=== PATIENT | male | born 1990 | race American Indian/Alaskan Native ===

== ENCOUNTER 2019-10-16 09:54 | Inpatient (IN) | payer OTHER ==
--- NOTE | 2019-10-16 10:35 | Emergency Department Report ---
HPI - General Chief Complaint: Sickle Cell Crisis Time Seen by Provider: 10/16/19 10:18 - HPI HPI: 29-year-old -[place]oc[place] male presents to the emergency department with complaint of a 2-day history of shortness of breath. He has a history of sickle cell anemia. He denies any fever, chest pain, cough, back pain, lower extremity swelling. He has not taken, nor received anything, for his symptoms prior to presentation. The patient was found to be 87% on room air through triage. ED Past Medical Hx - Past Medical History Previous Medical History?: Yes Hx Sickle Cell Disease: Yes - Surgical History Past Surgical History?: No - Social History Smoking Status: Never Smoker ED Review of Systems ROS: Stated complaint: SSC/SOB Other details as noted in HPI Comment: All other systems reviewed and negative Constitutional: denies: chills, fever Eyes: denies: eye pain, vision change ENT: denies: ear pain, throat pain Respiratory: shortness of breath. denies: cough Cardiovascular: denies: chest pain, palpitations Gastrointestinal: denies: abdominal pain, vomiting Genitourinary: denies: dysuria, discharge Musculoskeletal: denies: back pain, arthralgia Skin: denies: rash, lesions Neurological: denies: headache, weakness Physical Exam - Physical Exam Vital Signs: Vital Signs 10/16/19 10/16/19 10:13 10:26 Temperature 97.9 F Pulse Rate 59 L 73 Respiratory 20 14 Rate Blood Pressure 120/62 O2 Sat by Pulse 88 Oximetry Physical Exam: GENERAL: The patient is well-developed well-nourished. HENT: Normocephalic. Atraumatic. Patient has moist mucous membranes. EYES: Extraocular motions are intact. Pupils equal reactive to light bilat erally. Pale conjunctiva. NECK: Supple. Trachea is midline. CHEST/LUNGS: Clear to auscultation. Mild tachypnea but no accessory muscle use. HEART/CARDIOVASCULAR: Regular. There is no tachycardia. There is no murmur. ABDOMEN: Abdomen is soft, nontender. Patient has normal bowel sounds. SKIN: Skin is warm and dry. Patient is slightly jaundiced. NEURO: The patient is awake, alert, and oriented. The patient is cooperative. The patient has no focal neurologic deficits. Normal speech. MUSCULOSKELETAL: There is no tenderness or deformity.There is no evidence of acute injury. ED Course Vital Signs 10/16/19 10/16/19 10:13 10:26 Temperature 97.9 F Pulse Rate 59 L 73 Respiratory 20 14 Rate Blood Pressure 120/62 O2 Sat by Pulse 88 Oximetry ED Medical Decision Making - Lab Data Result diagrams: 10/16/19 10:33 10/16/19 10:33 - EKG Data -: EKG Interpreted by Me EKG shows normal: sinus rhythm, axis, intervals (Prolonged WI interval), QRS complexes, ST-T waves (T wave inversion to lead III) Rate: bradycardia (55 bpm) - EKG Data When compared to previous EKG there are: previous EKG unavailable Interpretation: other (Sinus bradycardia at 55 bpm, prolonged WI interval, T wave inversion to lead III) - Radiology Data Radiology results: image reviewed interpreted by me: Chest x-ray does not show any acute process. There are no pleural effusions, obvious pneumonia and there is no pneumothorax. - Medical Decision Making This patient presents from group home with complaint of a 2-day history of shortness of breath. Patient is afebrile but does present with some hypoxia. The patient was as low as 88% on room air in triage. He was placed on oxygen via nasal cannula but he was once again tested when he came back to the main emergency department and he went down to 90%. He now remains on supplemental oxygen. Chest x-ray does not show any pneumonia, pleural effusions, or any other acute process. Patient has a hemoglobin of 6.7. He has a reticulocyte count of greater than 9. The rest of the labs are unremarkable except for elevated total bilirubin and elevated LDH. The patient has had 1 unit of packed red blood cells ordered for transfusion. He will be admitted to the hospital for further evaluation and treatment and was accepted for admission by the hospitalist service. Critical Care Time: Yes Critical care time in (mins) excluding proc time.: 31 Critical care attestation.: If time is entered above; I have spent that time in minutes in the direct care of this critically ill patient, excluding procedure time. Critical care time was spent on this patient in doing his initial evaluation, multiple re-evalua tions, ordering and interpretation of labs and imaging, ordering of blood for transfusion, multiple discussions with the patient. Critical Care Time: 31 minutes ED Disposition Clinical Impression: Sickle cell crisis, Anemia requiring transfusions, Symptomatic anemia, Hypoxia Disposition: - OP ADMIT IP TO THIS HOSP Is pt being admited?: Yes Condition: Serious Time of Disposition: 11:42
[2019-10-16 10:57] LABS: Hemoglobin 6.7 gm/dl (11.8-15.2); Mean Corpuscular HGB Conc 37 % (32-34); Mean Corpuscular Volume 82 fl (84-94); Platelet Count 410 K/mm3 (140-440); Red Blood Count 2.23 M/mm3 (3.65-5.03)
--- NOTE | 2019-10-16 10:59 | XRay Report ---
CHEST 1 VIEW 10/16/2019 10:34 AM INDICATION / CLINICAL INFORMATION: SOB. COMPARISON: None available. FINDINGS: SUPPORT DEVICES: None. HEART / MEDIASTINUM: No significant abnormality. LUNGS / PLEURA: There is mild left basilar atelectasis/scarring. The lungs are otherwise clear. No si gnificant pleural effusion. No pneumothorax. ADDITIONAL FINDINGS: No significant additional findings. IMPRESSION: 1. No acute abnormality of the chest. Signer Name: Maurice Lehman MD Signed: 10/16/2019 10:54 AM Workstation Name: [id number]
[2019-10-16 11:08] LABS: Hematocrit 18.2 % (35.5-45.6); INR 1.18 (0.87-1.13); Red Cell Distribution Width 27.7 % (13.2-15.2)
[2019-10-16 11:09] LABS: Partial Thromboplastin Time 28.1 Sec. (24.2-36.6)
[2019-10-16 11:35] LABS: Alanine Aminotransferase 45 units/L (7-56); Albumin 4.4 g/dL (3.9-5); BUN/Creatinine Ratio 16; Blood Urea Nitrogen 11 mg/dL (9-20); Calcium 9.2 mg/dL (8.4-10.2); Hemolysis Index 35
[2019-10-16 11:36] LABS: C-Reactive Protein 0.8 mg/dL (0.00-1.30)
[2019-10-16] MEDS ORDERED: SODIUM CHLORIDE 0.9% 500 ML 500 ML IV ONE (11:36)
[2019-10-16 13:10] LABS: Anisocytosis 3+; Basophils % (Manual) 0 % (0.0-1.8); Sickle Cells 3+; Target Cells 1+; Total Cells Counted 100
[2019-10-16 13:11] LABS: Giant Platelets Rare; Platelet Estimate Consistent w Auto
--- NOTE | 2019-10-16 16:26 | History and Physical Report ---
History of Present Illness Date of examination: 10/16/19 Date of admission: 10/16/19 11:42 Chief complaint: Generalized body pains/sickle cell crisis History of present illness: Very pleasant 29-year-old -Cypriot male patient, incarcerated was brought by the law enforcement officers with worsening shortness of breath and generalized body pains, patient was admitted through emergency room, noted to be hypoxemic, with O2 sats of 87% room air and initial work-up is consistent with severe anemia with hemoglobin of 6, patient's O2 sats improved on nasal cannula oxygen Patient is noted to have symptomatic anemia, mild nausea no vomiting Patient denies chest pain, however complains of generalized body pains and shortness of breath Chest x-ray; no acute abnormality Past History Past Medical History: other (Sickle cell disease) Past Surgical History: No surgical history Social history: other (Incarcerated). denies: smoking, alcohol abuse, prescription drug abuse Family history: no significant family history Medications and Allergies Allergies Allergy/AdvReac Type Severity Reaction Status Date / Time No Known Allergies Allergy Unverified 10/16/19 10:15 Review of Systems Constitutional: weakness, no weight loss, no weight gain, no anorexia Ears, nose, mouth and throat: no nasal congestion, no nasal discharge Cardiovascular: shortness of breath, other (Generalized body pains) Respiratory: shortness of breath, no cough, no hemoptysis Gastrointestinal: no abdominal pain, no nausea, no vomiting Genitourinary Male: no dysuria, no hematuria Musculoskeletal: myalgias, no arthritis Integumentary: no rash, no lesions Neurological: no seizures, no syncope Psychiatric: no anxiety, no depression Endocrine: no polydipsia, no polyuria Hematologic/Lymphatic: no easy bruising, no easy bleeding Allergic/Immunologic: no urticaria, no allergic rhinitis Exam - Constitutional Vitals: Temp Pulse Resp BP Pulse Ox 98.3 F 49 L 17 112/64 99 10/16/19 10:35 10/16/19 11:30 10/16/19 12:30 10/16/19 12:30 10/16/19 12:30 General appearance: Present: mild distress, well-nourished - EENT Eyes: Present: PERRL, EOM intact - Neck Neck: Present: supple, normal ROM - Respiratory Respiratory effort: normal Respiratory: bilateral: diminished, negative: rales, rhonchi, wheezing - Cardiovascular Rhythm: regular Heart Sounds: Present: S1 & S2 - Extremities Extremities: no ischemia, No edema - Abdominal General gastrointestinal: Present: soft, non-tender, non-distended, normal bowel sounds - Integumentary Integumentary: Present: clear, warm - Musculoskeletal Musculoskeletal: strength equal bilaterally, generalized weakness - Psychiatric Psychiatric: appropriate mood/affect, cooperative - Neurologic Neurologic: moves all extremities Results - Labs CBC & Chem 7: 10/16/19 10:33 10/16/19 10:33 Labs: Abnormal lab results 10/16/19 10/16/19 10/16/19 Range/Units 10:33 10:33 10:33 WBC 11.4 H (4.5-11.0) K/mm3 RBC 2.23 L (3.65-5.03) M/mm3 Hgb 6.7 L (11.8-15.2) gm/dl Hct 18.2 L* (35.5-45.6) % MCV 82 L (84-94) fl MCHC 37 H (32-34) % RDW 27.7 H (13.2-15.2) % Eosinophils % (Manual) 8.0 H (0.0-4.3) % Nucleated RBC % 2.0 H (0.0-0.9) % Eosinophils # (Manual) 0.9 H (0.0-0.4) K/mm3 Percent Retic 9.19 H (0.78-2.58) % PT 15.2 H (12.2-14.9) Sec. INR 1.18 H (0.87-1.13) Sodium 136 L (137-145) mmol/L Carbon Dioxide 20 L (22-30) mmol/L Creatinine 0.7 L (0.8-1.5) mg/dL Total Bilirubin 5.30 H (0.1-1.2) mg/dL AST 53 H (5-40) units/L Lactate Dehydrogenase (91-180) units/L Crossmatch 10/16/19 10/16/19 Range/Units 10:33 10:57 WBC (4.5-11.0) K/mm3 RBC (3.65-5.03) M/mm3 Hgb (11.8-15.2) gm/dl Hct (35.5-45.6) % MCV (84-94) fl MCHC (32-34) % RDW (13.2-15.2) % Eosinophils % (Manual) (0.0-4.3) % Nucleated RBC % (0.0-0.9) % Eosinophils # (Manual) (0.0-0.4) K/mm3 Percent Retic (0.78-2.58) % PT (12.2-14.9) Sec. INR (0.87-1.13) Sodium (137-145) mmol/L Carbon Dioxide (22-30) mmol/L Creatinine (0.8-1.5) mg/dL Total Bilirubin (0.1-1.2) mg/dL AST (5-40) units/L Lactate Dehydrogenase 607 H (91-180) units/L Crossmatch See Detail Assessment and Plan --Acute respiratory distress; with brief hypoxemia Resolved with nasal cannula oxygen, continue supportive care --Symptomatic anemia; hemoglobin less than 7 Due to sickle cell anemia, type and cross, transfuse 1 unit of PRBC Closely monitor H&H, additional PRBC transfusion if needed --Sickle cell crisis; oxygen titrate O2 sats to more than 90% IV fluids, pain medications, hematology consult if needed --Leukocytosis; probably stress-induced Closely monitor --Mild elevation of transaminases; Sickle cell related, closely monitor, abdominal ultrasound if no improvement --DVT prophylaxis; SCDs No pharmacologic anticoagulation in view of anemia Closely monitor the patient and adjust management as needed Plan of care reviewed with the patient, his nurse And the security officers at the bedside
[2019-10-16] MEDS ORDERED: NALOXONE 0.4 MG/1 ML INJ IV PRN (16:29)
[2019-10-16] MEDS ORDERED: ONDANSETRON 4 MG/2 ML INJ IV PRN (16:29)
[2019-10-16] MEDS ORDERED: MAGNESIUM HYDROXIDE (MOM) ORAL LIQD UDC PO PRN (16:29)
[2019-10-16] MEDS ORDERED: HYDROmorphone 2 MG/1 ML INJ IV PRN (16:29)
[2019-10-16] MEDS ORDERED: D5W/0.45% NACL 1,000 ML IV SCH (17:00)
[2019-10-16] MEDS ORDERED: oxyCODONE ER 20 MG TAB PO SCH (17:00)
[2019-10-16] MEDS ORDERED: oxyCODONE ER 20 MG TAB PO PRN (17:03)
[2019-10-16] MEDS: SENNOSIDES 8.6 MG TAB PO SCH (22:43)
[2019-10-17] MEDS: diphenhydrAMINE 25 MG CAP PO PRN ×2 (00:03→23:19)
[2019-10-17] MEDS: HYDROcodone/ACETAMINOPHEN 10-325MG TAB PO PRN ×3 (00:03→23:19)
[2019-10-17 04:42] LABS: Hemoglobin 6.8 gm/dl (11.8-15.2); Mean Corpuscular HGB Conc 36 % (32-34); Mean Corpuscular Volume 83 fl (84-94); Platelet Count 344 K/mm3 (140-440); Red Blood Count 2.26 M/mm3 (3.65-5.03)
[2019-10-17 04:57] LABS: BUN/Creatinine Ratio 20; Blood Urea Nitrogen 14 mg/dL (9-20); Calcium 8.7 mg/dL (8.4-10.2); Hemolysis Index 7
[2019-10-17 05:39] LABS: Hematocrit 18.6 % (35.5-45.6); Red Cell Distribution Width 25.3 % (13.2-15.2)
[2019-10-17 07:30] LABS: Anisocytosis 2+; Basophils % (Manual) 0 % (0.0-1.8); Sickle Cells 1+; Total Cells Counted 100
[2019-10-17 07:31] LABS: Platelet Estimate Consistent w Auto; Target Cells 1+
[2019-10-17 09:02] LABS: Basophils # (Auto) 0.1 K/mm3 (0.0-0.1); Eosinophils # (Auto) 1.3 K/mm3 (0.0-0.4); Monocytes # (Auto) 1.4 K/mm3 (0.0-0.8); Monocytes % (Auto) 14.8 % (0.0-7.3)
[2019-10-17 09:22] LABS: Hemoglobin 7.2 gm/dl (11.8-15.2); Red Blood Count 2.34 M/mm3 (3.65-5.03)
[2019-10-17 09:23] LABS: Hematocrit 19.1 % (35.5-45.6); Lymphocytes # (Auto) 1.1 K/mm3 (1.2-5.4); Mean Corpuscular HGB Conc 37 % (32-34); Mean Corpuscular Volume 82 fl (84-94); Platelet Count 381 K/mm3 (140-440); Red Cell Distribution Width 25.7 % (13.2-15.2)
[2019-10-17] MEDS: FOLIC ACID 1 MG TAB PO SCH (09:54)
[2019-10-17] MEDS: MULTIVITAMINS ,THERAPEUTIC TAB PO SCH (09:54)
--- NOTE | 2019-10-17 20:44 | Progress Note ---
Assessment and Plan Assessment and plan: --Acute respiratory distress; with brief hypoxemia Resolved with nasal cannula oxygen, continue supportive care --Symptomatic anemia; hemoglobin less than 7 Improved after blood transfusion Closely monitor H&H, additional PRBC transfusion if needed --Sickle cell crisis; oxygen titrate O2 sats to more than 90% IV fluids, pain medications, hematology consult if needed Reticulocyte count is very high, closely monitor --Leukocytosis; probably stress-induced Closely monitor --Mild elevation of transaminases; Sickle cell related, closely monitor, abdominal ultrasound if no improvement --DVT prophylaxis; SCDs No pharmacologic anticoagulation in view of anemia Closely monitor the patient and adjust management as needed Plan of care reviewed with the patient, his nurse And the security officers at the bedside History Interval history: Patient seen and examined at the bedside this morning No enforcement officers at the bedside Patient feels slightly better complains of generalized weakness and body pains Denies chest pain or shortness of breath Vital signs reviewed Hospitalist Physical - Constitutional Vitals: Temp Pulse Resp BP Pulse Ox 98.0 F 50 L 18 110/65 97 10/17/19 15:56 10/17/19 15:56 10/17/19 15:56 10/17/19 15:56 10/17/19 15:56 General appearance: Present: mild distress, well-nourished Results - Labs CBC & Chem 7: 10/19/19 05:14 10/17/19 03:55 Labs: Laboratory Last Values WBC 9.8 K/mm3 (4.5-11.0) 10/17/19 08:22 RBC 2.34 M/mm3 (3.65-5.03) L 10/17/19 08:22 Hgb 7.2 gm/dl (11.8-15.2) L 10/17/19 08:22 Hct 19.1 % (35.5-45.6) L* 10/17/19 08:22 MCV 82 fl (84-94) L 10/17/19 08:22 MCH 31 pg (28-32) 10/17/19 08:22 MCHC 37 % (32-34) H 10/17/19 08:22 RDW 25.7 % (13.2-15.2) H 10/17/19 08:22 Plt Count 381 K/mm3 (140-440) 10/17/19 08:22 Lymph % (Auto) 11.0 % (13.4-35.0) L 10/17/19 08:22 [place] % (Auto) 14.8 % (0.0-7.3) H 10/17/19 08:22 Eos % (Auto) 13.0 % (0.0-4.3) H 10/17/19 08:22 Baso % (Auto) 1.0 % (0.0-1.8) 10/17/19 08:22 Lymph # 1.1 K/mm3 (1.2-5.4) L 10/17/19 08:22 [place] # 1.4 K/mm3 (0.0-0.8) H 10/17/19 08:22 Eos # 1.3 K/mm3 (0.0-0.4) H 10/17/19 08:22 Baso # 0.1 K/mm3 (0.0-0.1) 10/17/19 08:22 Add Manual Diff Complete 10/17/19 03:55 Total Counted 100 10/17/19 03:55 Seg Neutrophils % 60.2 % (40.0-70.0) 10/17/19 08:22 Seg Neuts % (Manual) 45.0 % (40.0-70.0) 10/17/19 03:55 Band Neutrophils % 0 % 10/17/19 03:55 Lymphocytes % (Manual) 40.0 % (13.4-35.0) H 10/17/19 03:55 Reactive Lymphs % (Man) 1.0 % 10/17/19 03:55 Monocytes % (Manual) 5.0 % (0.0-7.3) 10/17/19 03:55 Eosinophils % (Manual) 9.0 % (0.0-4.3) H 10/17/19 03:55 Basophils % (Manual) 0 % (0.0-1.8) 10/17/19 03:55 Metamyelocytes % 0 % 10/17/19 03:55 Myelocytes % 0 % 10/17/19 03:55 Promyelocytes % 0 % 10/17/19 03:55 Blast Cells % 0 % 10/17/19 03:55 Nucleated RBC % 1.0 % (0.0-0.9) H 10/17/19 03:55 Seg Neutrophils # 5.9 K/mm3 (1.8-7.7) 10/17/19 08:22 Seg Neutrophils # Man 4.9 K/mm3 (1.8-7.7) 10/17/19 03:55 Band Neutrophils # 0.0 K/mm3 10/17/19 03:55 Lymphocytes # (Manual) 4.3 K/mm3 (1.2-5.4) 10/17/19 03:55 Abs React Lymphs (Man) 0.1 K/mm3 10/17/19 03:55 Monocytes # (Manual) 0.5 K/mm3 (0.0-0.8) 10/17/19 03:55 Eosinophils # (Manual) 1.0 K/mm3 (0.0-0.4) H 10/17/19 03:55 Basophils # (Manual) 0.0 K/mm3 (0.0-0.1) 10/17/19 03:55 Metamyelocytes # 0.0 K/mm3 10/17/19 03:55 Myelocytes # 0.0 K/mm3 10/17/19 03:55 Promyelocytes # 0.0 K/mm3 10/17/19 03:55 Blast Cells # 0.0 K/mm3 10/17/19 03:55 WBC Morphology Not Reportable 10/17/19 03:55 Hypersegmented Neuts Not Reportable 10/17/19 03:55 Hyposegmented Neuts Not Reportable 10/17/19 03:55 Hypogranular Neuts Not Reportable 10/17/19 03:55 Smudge Cells Not Reportable 10/17/19 03:55 Toxic Granulation Not Reportable 10/17/19 03:55 Toxic Vacuolation Not Reportable 10/17/19 03:55 Dohle Bodies Not Reportable 10/17/19 03:55 Pelger-Huet Anomaly Not Reportable 10/17/19 03:55 Arian Rods Not Reportable 10/17/19 03:55 Platelet Estimate Consistent w auto 10/17/19 03:55 Clumped Platelets Not Reportable 10/17/19 03:55 Plt Clumps, EDTA Not Reportable 10/17/19 03:55 Large Platelets Not Reportable 10/17/19 03:55 Giant Platelets Not Reportable 10/17/19 03:55 Platelet Satelliting Not Reportable 10/17/19 03:55 Plt Morphology Comment Not Reportable 10/17/19 03:55 RBC Morphology Not Reportable 10/17/19 03:55 Dimorphic RBCs Not Reportable 10/17/19 03:55 Polychromasia 1+ 10/17/19 03:55 Hypochromasia Not Reportable 10/17/19 03:55 Poikilocytosis Not Reportable 10/17/19 03:55 Anisocytosis 2+ 10/17/19 03:55 Microcytosis Not Reportable 10/17/19 03:55 Macrocytosis Not Reportable 10/17/19 03:55 Spherocytes Not Reportable 10/17/19 03:55 Pappenheimer Bodies Not Reportable 10/17/19 03:55 Sickle Cells 1+ 10/17/19 03:55 Target Cells 1+ 10/17/19 03:55 Tear Drop Cells Not Reportable 10/17/19 03:55 Ovalocytes Not Reportable 10/17/19 03:55 Helmet Cells Not Reportable 10/17/19 03:55 [place] Bodies Not Reportable 10/17/19 03:55 [place] Rings Not Reportable 10/17/19 03:55 Depue Cells Not Reportable 10/17/19 03:55 Bite Cells Not Reportable 10/17/19 03:55 Crenated Cell Not Reportable 10/17/19 03:55 Elliptocytes 1+ 10/17/19 03:55 Acanthocytes (Spur) Not Reportable 10/17/19 03:55 Rouleaux Not Reportable 10/17/19 03:55 Hemoglobin C Crystals Not Reportable 10/17/19 03:55 Schistocytes Not Reportable 10/17/19 03:55 Malaria parasites Not Reportable 10/17/19 03:55 Percent Retic 9.19 % (0.78-2.58) H 10/16/19 10:33 Heraclio Bodies Not Reportable 10/17/19 03:55 Hem Pathologist Commnt No 10/17/19 03:55 PT 15.2 Sec. (12.2-14.9) H 10/16/19 10:33 INR 1.18 (0.87-1.13) H 10/16/19 10:33 APTT 28.1 Sec. (24.2-36.6) 10/16/19 10:33 Sodium 137 mmol/L (137-145) 10/17/19 03:55 Potassium 4.0 mmol/L (3.6-5.0) 10/17/19 03:55 Chloride 105.2 mmol/L (98-107) 10/17/19 03:55 Carbon Dioxide 23 mmol/L (22-30) 10/17/19 03:55 Anion Gap 13 mmol/L 10/17/19 03:55 BUN 14 mg/dL (9-20) 10/17/19 03:55 Creatinine 0.7 mg/dL (0.8-1.5) L 10/17/19 03:55 Estimated GFR > 60 ml/min 10/17/19 03:55 BUN/Creatinine Ratio 20 % 10/17/19 03:55 Glucose 102 mg/dL (75-100) H 10/17/19 03:55 Calcium 8.7 mg/dL (8.4-10.2) 10/17/19 03:55 Ferritin 89.3 ng/mL (13.0-400.0) 10/16/19 10:33 Total Bilirubin 5.30 mg/dL (0.1-1.2) H 10/16/19 10:33 AST 53 units/L (5-40) H 10/16/19 10:33 ALT 45 units/L (7-56) 10/16/19 10:33 Alkaline Phosphatase 111 units/L (35-129) 10/16/19 10:33 Lactate Dehydrogenase 607 units/L (91-180) H 10/16/19 10:33 C-Reactive Protein 0.80 mg/dL (0.00-1.30) 10/16/19 10:33 NT-Pro-B Natriuret Pep 70.60 pg/mL (0-450) 10/16/19 10:33 Total Protein 8.0 g/dL (6.3-8.2) 10/16/19 10:33 Albumin 4.4 g/dL (3.9-5) 10/16/19 10:33 Albumin/Globulin Ratio 1.2 % 10/16/19 10:33 Procalcitonin 0.36 ng/mL (<0.15) 10/16/19 10:33 Blood Type O POSITIVE 10/16/19 10:57 Antibody Screen Positive 10/16/19 10:57 Antibody Identification Anti-C Anti-E 10/16/19 10:57 Antibody Identification Anti-C Anti-E 10/16/19 10:57 Crossmatch See Detail 10/16/19 10:57 Chun/IV: Voiding Method Toilet IV Catheter Type [Right Hand] INT / Saline Lock Active Medications - Current Medications Current Medications: Generic Name Dose Route Start Last Admin Trade Name Freq PRN Reason Stop Dose Admin Acetaminophen/Hydrocodone Bitart 1 each 10/16/19 16:29 10/17/19 09:54 [place] 10/325 PO 1 each Q4H PRN Administration Pain, Moderate (4-6) Bisacodyl 10 mg 10/16/19 16:29 Dulcolax [place] QDAY PRN Constipation unrelieved by MOM Diphenhydramine HCl 25 mg 10/16/19 16:29 10/17/19 00:03 Benadryl PO 25 mg Q6H PRN Administration Itching Folic Acid 1 mg 10/17/19 10:00 10/17/19 09:54 Folvite PO 1 mg QDAY TYLER Administration Magnesium Hydroxide 30 ml 10/16/19 16:29 Milk Of Magnesia PO Q4H PRN Constipation Multivitamins 1 each 10/17/19 10:00 10/17/19 09:54 Theragran Tab PO 1 each QDAY TYLER Administration Naloxone HCl 0.1 mg 10/16/19 16:29 Naloxone IV Q2MIN PRN Res Rate </= 8 or 02 SAT < 92% Ondansetron HCl 4 mg 10/16/19 16:29 Zofran IV Q8H PRN Nausea And Vomiting Senna 17.2 mg 10/16/19 22:00 10/16/19 22:43 Senokot PO Not Given QHS TYLER
[2019-10-17] MEDS: SENNOSIDES 8.6 MG TAB PO SCH (23:19)
[2019-10-18] MEDS: HYDROcodone/ACETAMINOPHEN 10-325MG TAB PO PRN ×2 (08:21→17:08)
[2019-10-18] MEDS: FOLIC ACID 1 MG TAB PO SCH ×2 (08:21→12:53)
[2019-10-18] MEDS: MULTIVITAMINS ,THERAPEUTIC TAB PO SCH ×2 (08:21→12:53)
[2019-10-18] MEDS: diphenhydrAMINE 25 MG CAP PO PRN (08:21)
--- NOTE | 2019-10-18 08:34 | Hem/Onc Consultation ---
History of Present Illness - Reason for Consult Consult date: 10/18/19 sickle cell Requesting physician: FLAVIA BELCHER - History of Present Illness 29-year-old -[place]ian male patient, incarcerated was brought by the law enforcement officers with worsening shortness of breath and generalized body pains, patient was admitted through emergency room, noted to be hypoxemic, with O2 sats of 87% room air and initial work-up is consistent with severe anemia with hemoglobin of 6, patient's O2 sats improved on nasal cannula oxygen Past History Past Medical History: other (Sickle cell disease) Past Surgical History: No surgical history Social history: other (Incarcerated). denies: smoking, alcohol abuse, prescription drug abuse Family history: no significant family history Medications and Allergies Allergies Allergy/AdvReac Type Severity Reaction Status Date / Time No Known Allergies Allergy Unverified 10/16/19 10:15 Home Medications Medication Instructions Recorded Confirmed Last Taken Type No Known Home Medications [No 10/18/19 10/18/19 Unknown History Reported Home Medications] Active Meds: Active Medications Acetaminophen/Hydrocodone Bitart ([place] 10/325) 1 each PO Q4H PRN PRN Reason: Pain, Moderate (4-6) Last Admin: 10/18/19 08:21 Dose: 1 each Documented by: Bisacodyl (Dulcolax) 10 mg [place] QDAY PRN PRN Reason: Constipation unrelieved by MOM Diphenhydramine HCl (Benadryl) 25 mg PO Q6H PRN PRN Reason: Itching Last Admin: 10/18/19 08:21 Dose: 25 mg Documented by: Folic Acid (Folvite) 1 mg PO QDAY [facility] Last Admin: 10/18/19 08:21 Dose: 1 mg Documented by: Magnesium Hydroxide (Milk Of Magnesia) 30 ml PO Q4H PRN PRN Reason: Constipation Multivitamins (Theragran Tab) 1 each PO QDAY [facility] Last Admin: 10/18/19 08:21 Dose: 1 each Documented by: Naloxone HCl (Naloxone) 0.1 mg IV Q2MIN PRN PRN Reason: Res Rate </= 8 or 02 SAT < 92% Ondansetron HCl (Zofran) 4 mg IV Q8H PRN PRN Reason: Nausea And Vomiting Senna (Senokot) 17.2 mg PO QHS [facility] Last Admin: 10/17/19 23:19 Dose: Not Given Documented by: Exam - Exam Narrative Exam: reviewed notes - Constitutional Vitals: Last Vital Signs Temp 97.7 F 10/17/19 23:25 Pulse 53 L 10/18/19 04:00 Resp 16 10/17/19 23:25 BP 129/74 10/17/19 23:25 Pulse Ox 97 10/17/19 23:25 Results - Labs lab Results: Laboratory Results - last 24 hr 10/17/19 08:22 WBC 9.8 RBC 2.34 L Hgb 7.2 L Hct 19.1 L* MCV 82 L MCH 31 MCHC 37 H RDW 25.7 H Plt Count 381 Lymph % (Auto) 11.0 L [place] % (Auto) 14.8 H Eos % (Auto) 13.0 H Baso % (Auto) 1.0 Lymph # 1.1 L [place] # 1.4 H Eos # 1.3 H Baso # 0.1 Seg Neutrophils % 60.2 Seg Neutrophils # 5.9 Assessment and Plan # Symptomatic anemia; hemoglobin less than 7 Due to sickle cell anemia, s/p transfuse of PRBC Closely monitor H&H, additional PRBC transfusion if needed high retics - high LDH and high juan - likely sec to hemolysis folic acid hydration incentive spirometry OP follow up for decision reg hydrea # respiratory distress; with brief hypoxemia continue supportive care # h/o Leukocytosis; probably stress-induced better # h/o Mild elevation of transaminases; - Patient Problems (1) Sickle cell crisis Current Visit: Yes Status: Acute
--- NOTE | 2019-10-18 11:11 | Progress Note ---
Assessment and Plan Assessment and plan: --Acute respiratory distress; with brief hypoxemia Resolved with nasal cannula oxygen, continue supportive care --Symptomatic anemia; hemoglobin less than 7 Improved after blood transfusion TO 7.2 Closely monitor H&H, additional PRBC transfusion if needed --Sickle cell crisis; oxygen titrate O2 sats to more than 90% IV fluids, pain medications, hematology consult if needed Patient's reticulocyte count is high closely monitor oxygen titrate O2 sats --Leukocytosis; probably stress-induced Closely monitor --Mild elevation of transaminases; Sickle cell related, closely monitor, abdominal ultrasound if no improvement --DVT prophylaxis; SCDs No pharmacologic anticoagulation in view of anemia Closely monitor the patient and adjust management as needed Plan of care reviewed with the patient, his nurse And the security officers at the bedside Follow H&H and reticulocyte count tomorrow if stable patient may be discharged History Interval history: Patient seen and examined in his room this morning LAW enforcement officers at the bedside Patient feels slightly better still has some generalized body pains Hospitalist Physical - Constitutional Vitals: Temp Pulse Resp BP Pulse Ox 98.0 F 55 L 18 111/66 97 10/18/19 07:49 10/18/19 07:49 10/18/19 07:49 10/18/19 07:49 10/18/19 07:49 General appearance: Present: mild distress, well-nourished - EENT Eyes: Present: PERRL, EOM intact - Neck Neck: Present: supple, normal ROM - Respiratory Respiratory effort: normal Respiratory: bilateral: diminished, negative: rales, rhonchi, wheezing - Cardiovascular Rhythm: regular Heart Sounds: Present: S1 & S2 - Extremities Extremities: no ischemia, No edema - Abdominal General gastrointestinal: soft, non-tender, non-distended, normal bowel sounds - Integumentary Integumentary: Present: clear, warm - Psychiatric Psychiatric: appropriate mood/affect, cooperative - Neurologic Neurologic: CNII-XII intact, moves all extremities Results - Labs CBC & Chem 7: 10/19/19 05:14 10/17/19 03:55 Labs: Laboratory Last Values WBC 9.8 K/mm3 (4.5-11.0) 10/17/19 08:22 RBC 2.34 M/mm3 (3.65-5.03) L 10/17/19 08:22 Hgb 7.2 gm/dl (11.8-15.2) L 10/17/19 08: Hct 19.1 % (35.5-45.6) L* 10/17/19 08: MCV 82 fl (84-94) L 10/17/19 08:22 MCH 31 pg (28-32) 10/17/19 08: MCHC 37 % (32-34) H 10/17/19 08:22 RDW 25.7 % (13.2-15.2) H 10/17/19 08:22 Plt Count 381 K/mm3 (140-440) 10/17/19 08:22 Lymph % (Auto) 11.0 % (13.4-35.0) L 10/17/19 08:22 [place] % (Auto) 14.8 % (0.0-7.3) H 10/17/19 08:22 Eos % (Auto) 13.0 % (0.0-4.3) H 10/17/19 08:22 Baso % (Auto) 1.0 % (0.0-1.8) 10/17/19 08:22 Lymph # 1.1 K/mm3 (1.2-5.4) L 10/17/19 08:22 [place] # 1.4 K/mm3 (0.0-0.8) H 10/17/19 08:22 Eos # 1.3 K/mm3 (0.0-0.4) H 10/17/19 08:22 Baso # 0.1 K/mm3 (0.0-0.1) 10/17/19 08:22 Add Manual Diff Complete 10/17/19 03:55 Total Counted 100 10/17/19 03:55 Seg Neutrophils % 60.2 % (40.0-70.0) 10/17/19 08:22 Seg Neuts % (Manual) 45.0 % (40.0-70.0) 10/17/19 03:55 Band Neutrophils % 0 % 10/17/19 03:55 Lymphocytes % (Manual) 40.0 % (13.4-35.0) H 10/17/19 03:55 Reactive Lymphs % (Man) 1.0 % 10/17/19 03:55 Monocytes % (Manual) 5.0 % (0.0-7.3) 10/17/19 03:55 Eosinophils % (Manual) 9.0 % (0.0-4.3) H 10/17/19 03:55 Basophils % (Manual) 0 % (0.0-1.8) 10/17/19 03:55 Metamyelocytes % 0 % 10/17/19 03:55 Myelocytes % 0 % 10/17/19 03:55 Promyelocytes % 0 % 10/17/19 03:55 Blast Cells % 0 % 10/17/19 03:55 Nucleated RBC % 1.0 % (0.0-0.9) H 10/17/19 03:55 Seg Neutrophils # 5.9 K/mm3 (1.8-7.7) 10/17/19 08:22 Seg Neutrophils # Man 4.9 K/mm3 (1.8-7.7) 10/17/19 03:55 Band Neutrophils # 0.0 K/mm3 10/17/19 03:55 Lymphocytes # (Manual) 4.3 K/mm3 (1.2-5.4) 10/17/19 03:55 Abs React Lymphs (Man) 0.1 K/mm3 10/17/19 03:55 Monocytes # (Manual) 0.5 K/mm3 (0.0-0.8) 10/17/19 03:55 Eosinophils # (Manual) 1.0 K/mm3 (0.0-0.4) H 10/17/19 03:55 Basophils # (Manual) 0.0 K/mm3 (0.0-0.1) 10/17/19 03:55 Metamyelocytes # 0.0 K/mm3 10/17/19 03:55 Myelocytes # 0.0 K/mm3 10/17/19 03:55 Promyelocytes # 0.0 K/mm3 10/17/19 03:55 Blast Cells # 0.0 K/mm3 10/17/19 03:55 WBC Morphology Not Reportable 10/17/19 03:55 Hypersegmented Neuts Not Reportable 10/17/19 03:55 Hyposegmented Neuts Not Reportable 10/17/19 03:55 Hypogranular Neuts Not Reportable 10/17/19 03:55 Smudge Cells Not Reportable 10/17/19 03:55 Toxic Granulation Not Reportable 10/17/19 03:55 Toxic Vacuolation Not Reportable 10/17/19 03:55 Dohle Bodies Not Reportable 10/17/19 03:55 Pelger-Huet Anomaly Not Reportable 10/17/19 03:55 Arian Rods Not Reportable 10/17/19 03:55 Platelet Estimate Consistent w auto 10/17/19 03:55 Clumped Platelets Not Reportable 10/17/19 03:55 Plt Clumps, EDTA Not Reportable 10/17/19 03:55 Large Platelets Not Reportable 10/17/19 03:55 Giant Platelets Not Reportable 10/17/19 03:55 Platelet Satelliting Not Reportable 10/17/19 03:55 Plt Morphology Comment Not Reportable 10/17/19 03:55 RBC Morphology Not Reportable 10/17/19 03:55 Dimorphic RBCs Not Reportable 10/17/19 03:55 Polychromasia 1+ 10/17/19 03:55 Hypochromasia Not Reportable 10/17/19 03:55 Poikilocytosis Not Reportable 10/17/19 03:55 Anisocytosis 2+ 10/17/19 03:55 Microcytosis Not Reportable 10/17/19 03:55 Macrocytosis Not Reportable 10/17/19 03:55 Spherocytes Not Reportable 10/17/19 03:55 Pappenheimer Bodies Not Reportable 10/17/19 03:55 Sickle Cells 1+ 10/17/19 03:55 Target Cells 1+ 10/17/19 03:55 Tear Drop Cells Not Reportable 10/17/19 03:55 Ovalocytes Not Reportable 10/17/19 03:55 Helmet Cells Not Reportable 10/17/19 03:55 Giordano-[place] Bodies Not Reportable 10/17/19 03:55 [place] Rings Not Reportable 10/17/19 03:55 [place] Cells Not Reportable 10/17/19 03:55 Bite Cells Not Reportable 10/17/19 03:55 Crenated Cell Not Reportable 10/17/19 03:55 Elliptocytes 1+ 10/17/19 03:55 Acanthocytes (Spur) Not Reportable 10/17/19 03:55 Rouleaux Not Reportable 10/17/19 03:55 Hemoglobin C Crystals Not Reportable 10/17/19 03:55 Schistocytes Not Reportable 10/17/19 03:55 Malaria parasites Not Reportable 10/17/19 03:55 Percent Retic 9.19 % (0.78-2.58) H 10/16/19 10:33 Heraclio Bodies Not Reportable 10/17/19 03:55 Hem Pathologist Commnt No 10/17/19 03:55 PT 15.2 Sec. (12.2-14.9) H 10/16/19 10:33 INR 1.18 (0.87-1.13) H 10/16/19 10:33 APTT 28.1 Sec. (24.2-36.6) 10/16/19 10:33 Sodium 137 mmol/L (137-145) 10/17/19 03:55 Potassium 4.0 mmol/L (3.6-5.0) 10/17/19 03:55 Chloride 105.2 mmol/L (98-107) 10/17/19 03:55 Carbon Dioxide 23 mmol/L (22-30) 10/17/19 03:55 Anion Gap 13 mmol/L 10/17/19 03:55 BUN 14 mg/dL (9-20) 10/17/19 03:55 Creatinine 0.7 mg/dL (0.8-1.5) L 10/17/19 03:55 Estimated GFR > 60 ml/min 10/17/19 03:55 BUN/Creatinine Ratio 20 % 10/17/19 03:55 Glucose 102 mg/dL (75-100) H 10/17/19 03:55 Calcium 8.7 mg/dL (8.4-10.2) 10/17/19 03:55 Ferritin 89.3 ng/mL (13.0-400.0) 10/16/19 10:33 Total Bilirubin 5.30 mg/dL (0.1-1.2) H 10/16/19 10:33 AST 53 units/L (5-40) H 10/16/19 10:33 ALT 45 units/L (7-56) 10/16/19 10:33 Alkaline Phosphatase 111 units/L (35-129) 10/16/19 10:33 Lactate Dehydrogenase 607 units/L (91-180) H 10/16/19 10:33 C-Reactive Protein 0.80 mg/dL (0.00-1.30) 10/16/19 10:33 NT-Pro-B Natriuret Pep 70.60 pg/mL (0-450) 10/16/19 10:33 Total Protein 8.0 g/dL (6.3-8.2) 10/16/19 10:33 Albumin 4.4 g/dL (3.9-5) 10/16/19 10:33 Albumin/Globulin Ratio 1.2 % 10/16/19 10:33 Procalcitonin 0.36 ng/mL (<0.15) 10/16/19 10:33 Blood Type O POSITIVE 10/16/19 10:57 Antibody Screen Positive 10/16/19 10:57 Antibody Identification Anti-C Anti-E 10/16/19 10:57 Antibody Identification Anti-C Anti-E 10/16/19 10:57 Crossmatch See Detail 10/16/19 10:57 Chun/IV: Voiding Method Toilet IV Catheter Type [Right Hand] INT / Saline Lock Active Medications - Current Medications Current Medications: Generic Name Dose Route Start Last Admin Trade Name Freq PRN Reason Stop Dose Admin Acetaminophen/Hydrocodone Bitart 1 each 10/16/19 16:29 10/18/19 08:21 [place] 10/325 PO 1 each Q4H PRN Administration Pain, Moderate (4-6) Bisacodyl 10 mg 10/16/19 16:29 Dulcolax [place] QDAY PRN Constipation unrelieved by MOM Diphenhydramine HCl 25 mg 10/16/19 16:29 10/18/19 08:21 Benadryl PO 25 mg Q6H PRN Administration Itching Folic Acid 1 mg 10/17/19 10:00 10/18/19 08:21 Folvite PO 1 mg QDAY TYLER Administration Magnesium Hydroxide 30 ml 10/16/19 16:29 Milk Of Magnesia PO Q4H PRN Constipation Multivitamins 1 each 10/17/19 10:00 10/18/19 08:21 Theragran Tab PO 1 each QDAY TYLER Administration Naloxone HCl 0.1 mg 10/16/19 16:29 Naloxone IV Q2MIN PRN Res Rate </= 8 or 02 SAT < 92% Ondansetron HCl 4 mg 10/16/19 16:29 Zofran IV Q8H PRN Nausea And Vomiting Senna 17.2 mg 10/16/19 22:00 10/17/19 23:19 Senokot PO Not Given QHS TYLER
[2019-10-18] MEDS: SENNOSIDES 8.6 MG TAB PO SCH (22:47)
[2019-10-19] MEDS: diphenhydrAMINE 25 MG CAP PO PRN (00:21)
[2019-10-19] MEDS: HYDROcodone/ACETAMINOPHEN 10-325MG TAB PO PRN ×3 (00:21→20:12)
[2019-10-19 05:53] LABS: Hemoglobin 6.9 gm/dl (11.8-15.2); Mean Corpuscular HGB Conc 36 % (32-34); Mean Corpuscular Volume 82 fl (84-94); Platelet Count 345 K/mm3 (140-440); Red Blood Count 2.34 M/mm3 (3.65-5.03)
[2019-10-19 06:02] LABS: Hematocrit 19.1 % (35.5-45.6); Red Cell Distribution Width 24.6 % (13.2-15.2)
[2019-10-19 06:15] LABS: Iron 239 ug/dL (49-181); Total Iron Binding Capacity 308 mcg/dL (250-450)
[2019-10-19] MEDS: FOLIC ACID 1 MG TAB PO SCH (10:25)
[2019-10-19] MEDS: MULTIVITAMINS ,THERAPEUTIC TAB PO SCH (10:25)
[2019-10-19] MEDS ORDERED: SODIUM CHLORIDE 0.9% 500 ML 500 ML IV ONE ×2 (10:46→15:00)
--- NOTE | 2019-10-19 10:52 | Progress Note ---
Assessment and Plan Assessment and plan: Today; patient's hemoglobin dropped to 6.9, transfuse 1 additional unit of PRBC Patient's reticulocyte count is still high, oxygen and IV fluids, monitor reticulocyte count Reticulocyte count improved from 9.19-6.15[normal 0.7- 2.5] --Acute respiratory distress; with brief hypoxemia Resolved with nasal cannula oxygen, continue supportive care --Symptomatic anemia; hemoglobin 6.7 Improved after blood transfusion to 7.2 Today hemoglobin dropped to 6.9, no external evidence of bleeding Transfuse additional 1 unit PRBC today --Sickle cell crisis; oxygen titrate O2 sats to more than 90% IV fluids, pain medications, hematology consult if needed Patient's reticulocyte count still high --Leukocytosis; probably stress-induced Closely monitor --Mild elevation of transaminases; Sickle cell related, closely monitor, abdominal ultrasound if no improvement --DVT prophylaxis; SCDs No pharmacologic anticoagulation in view of anemia Closely monitor the patient and adjust management as needed Plan of care reviewed with the patient, his nurse And the security officers at the bedside Monitor H&H, reticulocyte count tomorrow If improved and patient is asymptomatic May be discharge tomorrow History Interval history: Patient seen and examined at the bedside Patient's chart tests reviewed Patient complains of generalized weakness Hemoglobin dropped to 6.9 today Still has elevated reticulocyte count Hospitalist Physical - Constitutional Vitals: Temp Pulse Resp BP Pulse Ox 98.6 F 66 22 118/71 90 10/19/19 08:38 10/19/19 08:38 10/19/19 08:38 10/19/19 08:38 10/19/19 08:38 General appearance: Present: mild distress, well-nourished - EENT Eyes: Present: PERRL, EOM intact - Neck Neck: Present: supple, normal ROM - Respiratory Respiratory effort: normal Respiratory: bilateral: diminished, negative: rales, rhonchi, wheezing - Cardiovascular Rhythm: regular Heart Sounds: Present: S1 & S2 - Extremities Extremities: no ischemia, No edema - Abdominal General gastrointestinal: soft, non-tender, non-distended, normal bowel sounds - Integumentary Integumentary: Present: clear, warm - Psychiatric Psychiatric: appropriate mood/affect, cooperative - Neurologic Neurologic: CNII-XII intact, moves all extremities Results - Labs CBC & Chem 7: 10/19/19 05:14 10/17/19 03:55 Labs: Laboratory Last Values WBC 14.9 K/mm3 (4.5-11.0) H 10/19/19 05:14 RBC 2.34 M/mm3 (3.65-5.03) L 10/19/19 05:14 Hgb 6.9 gm/dl (11.8-15.2) L 10/19/19 05:14 Hct 19.1 % (35.5-45.6) L* 10/19/19 05:14 MCV 82 fl (84-94) L 10/19/19 05:14 MCH 30 pg (28-32) 10/19/19 05:14 MCHC 36 % (32-34) H 10/19/19 05:14 RDW 24.6 % (13.2-15.2) H 10/19/19 05:14 Plt Count 345 K/mm3 (140-440) 10/19/19 05:14 Lymph % (Auto) 11.0 % (13.4-35.0) L 10/17/19 08:22 [place] % (Auto) 14.8 % (0.0-7.3) H 10/17/19 08:22 Eos % (Auto) 13.0 % (0.0-4.3) H 10/17/19 08:22 Baso % (Auto) 1.0 % (0.0-1.8) 10/17/19 08:22 Lymph # 1.1 K/mm3 (1.2-5.4) L 10/17/19 08:22 [place] # 1.4 K/mm3 (0.0-0.8) H 10/17/19 08:22 Eos # 1.3 K/mm3 (0.0-0.4) H 10/17/19 08:22 Baso # 0.1 K/mm3 (0.0-0.1) 10/17/19 08:22 Add Manual Diff Complete 10/17/19 03:55 Total Counted 100 10/17/19 03:55 Seg Neutrophils % 60.2 % (40.0-70.0) 10/17/19 08:22 Seg Neuts % (Manual) 45.0 % (40.0-70.0) 10/17/19 03:55 Band Neutrophils % 0 % 10/17/19 03:55 Lymphocytes % (Manual) 40.0 % (13.4-35.0) H 10/17/19 03:55 Reactive Lymphs % (Man) 1.0 % 10/17/19 03:55 Monocytes % (Manual) 5.0 % (0.0-7.3) 10/17/19 03:55 Eosinophils % (Manual) 9.0 % (0.0-4.3) H 10/17/19 03:55 Basophils % (Manual) 0 % (0.0-1.8) 10/17/19 03:55 Metamyelocytes % 0 % 10/17/19 03:55 Myelocytes % 0 % 10/17/19 03:55 Promyelocytes % 0 % 10/17/19 03:55 Blast Cells % 0 % 10/17/19 03:55 Nucleated RBC % 1.0 % (0.0-0.9) H 10/17/19 03:55 Seg Neutrophils # 5.9 K/mm3 (1.8-7.7) 10/17/19 08:22 Seg Neutrophils # Man 4.9 K/mm3 (1.8-7.7) 10/17/19 03:55 Band Neutrophils # 0.0 K/mm3 10/17/19 03:55 Lymphocytes # (Manual) 4.3 K/mm3 (1.2-5.4) 10/17/19 03:55 Abs React Lymphs (Man) 0.1 K/mm3 10/17/19 03:55 Monocytes # (Manual) 0.5 K/mm3 (0.0-0.8) 10/17/19 03:55 Eosinophils # (Manual) 1.0 K/mm3 (0.0-0.4) H 10/17/19 03:55 Basophils # (Manual) 0.0 K/mm3 (0.0-0.1) 10/17/19 03:55 Metamyelocytes # 0.0 K/mm3 10/17/19 03:55 Myelocytes # 0.0 K/mm3 10/17/19 03:55 Promyelocytes # 0.0 K/mm3 10/17/19 03:55 Blast Cells # 0.0 K/mm3 10/17/19 03:55 WBC Morphology Not Reportable 10/17/19 03:55 Hypersegmented Neuts Not Reportable 10/17/19 03:55 Hyposegmented Neuts Not Reportable 10/17/19 03:55 Hypogranular Neuts Not Reportable 10/17/19 03:55 Smudge Cells Not Reportable 10/17/19 03:55 Toxic Granulation Not Reportable 10/17/19 03:55 Toxic Vacuolation Not Reportable 10/17/19 03:55 Dohle Bodies Not Reportable 10/17/19 03:55 Pelger-Huet Anomaly Not Reportable 10/17/19 03:55 Arian Rods Not Reportable 10/17/19 03:55 Platelet Estimate Consistent w auto 10/17/19 03:55 Clumped Platelets Not Reportable 10/17/19 03:55 Plt Clumps, EDTA Not Reportable 10/17/19 03:55 Large Platelets Not Reportable 10/17/19 03:55 Giant Platelets Not Reportable 10/17/19 03:55 Platelet Satelliting Not Reportable 10/17/19 03:55 Plt Morphology Comment Not Reportable 10/17/19 03:55 RBC Morphology Not Reportable 10/17/19 03:55 Dimorphic RBCs Not Reportable 10/17/19 03:55 Polychromasia 1+ 10/17/19 03:55 Hypochromasia Not Reportable 10/17/19 03:55 Poikilocytosis Not Reportable 10/17/19 03:55 Anisocytosis 2+ 10/17/19 03:55 Microcytosis Not Reportable 10/17/19 03:55 Macrocytosis Not Reportable 10/17/19 03:55 Spherocytes Not Reportable 10/17/19 03:55 Pappenheimer Bodies Not Reportable 10/17/19 03:55 Sickle Cells 1+ 10/17/19 03:55 Target Cells 1+ 10/17/19 03:55 Tear Drop Cells Not Reportable 10/17/19 03:55 Ovalocytes Not Reportable 10/17/19 03:55 Helmet Cells Not Reportable 10/17/19 03:55 Giordano-[place] Bodies Not Reportable 10/17/19 03:55 [place] Rings Not Reportable 10/17/19 03:55 [place] Cells Not Reportable 10/17/19 03:55 Bite Cells Not Reportable 10/17/19 03:55 Crenated Cell Not Reportable 10/17/19 03:55 Elliptocytes 1+ 10/17/19 03:55 Acanthocytes (Spur) Not Reportable 10/17/19 03:55 Rouleaux Not Reportable 10/17/19 03:55 Hemoglobin C Crystals Not Reportable 10/17/19 03:55 Schistocytes Not Reportable 10/17/19 03:55 Malaria parasites Not Reportable 10/17/19 03:55 Percent Retic 6.15 % (0.78-2.58) H 10/19/19 05:14 Heraclio Bodies Not Reportable 10/17/19 03:55 Hem Pathologist Commnt No 10/17/19 03:55 PT 15.2 Sec. (12.2-14.9) H 10/16/19 10:33 INR 1.18 (0.87-1.13) H 10/16/19 10:33 APTT 28.1 Sec. (24.2-36.6) 10/16/19 10:33 Sodium 137 mmol/L (137-145) 10/17/19 03:55 Potassium 4.0 mmol/L (3.6-5.0) 10/17/19 03:55 Chloride 105.2 mmol/L (98-107) 10/17/19 03:55 Carbon Dioxide 23 mmol/L (22-30) 10/17/19 03:55 Anion Gap 13 mmol/L 10/17/19 03:55 BUN 14 mg/dL (9-20) 10/17/19 03:55 Creatinine 0.7 mg/dL (0.8-1.5) L 10/17/19 03:55 Estimated GFR > 60 ml/min 10/17/19 03:55 BUN/Creatinine Ratio 20 % 10/17/19 03:55 Glucose 102 mg/dL (75-100) H 10/17/19 03:55 Calcium 8.7 mg/dL (8.4-10.2) 10/17/19 03:55 Iron 239 ug/dL (49-181) H 10/19/19 05:14 TIBC 308 mcg/dL (250-450) 10/19/19 05:14 Ferritin 89.3 ng/mL (13.0-400.0) 10/16/19 10:33 Total Bilirubin 5.30 mg/dL (0.1-1.2) H 10/16/19 10:33 AST 53 units/L (5-40) H 10/16/19 10:33 ALT 45 units/L (7-56) 10/16/19 10:33 Alkaline Phosphatase 111 units/L (35-129) 10/16/19 10:33 Lactate Dehydrogenase 607 units/L (91-180) H 10/16/19 10:33 C-Reactive Protein 0.80 mg/dL (0.00-1.30) 10/16/19 10:33 NT-Pro-B Natriuret Pep 70.60 pg/mL (0-450) 10/16/19 10:33 Total Protein 8.0 g/dL (6.3-8.2) 10/16/19 10:33 Albumin 4.4 g/dL (3.9-5) 10/16/19 10:33 Albumin/Globulin Ratio 1.2 % 10/16/19 10:33 Vitamin B12 463.8 pg/mL (211-911) 10/19/19 05:14 Folate > 20 ng/mL (7.3-26.0) 10/19/19 05:14 Procalcitonin 0.36 ng/mL (<0.15) 10/16/19 10:33 Blood Type O POSITIVE 10/16/19 10:57 Antibody Screen Positive 10/16/19 10:57 Antibody Identification Anti-C Anti-E 10/16/19 10:57 Antibody Identification Anti-C Anti-E 10/16/19 10:57 Crossmatch See Detail 10/16/19 10:57 Chun/IV: Voiding Method Toilet IV Catheter Type [Right Hand] INT / Saline Lock Active Medications - Current Medications Current Medications: Generic Name Dose Route Start Last Admin Trade Name Freq PRN Reason Stop Dose Admin Acetaminophen/Hydrocodone Bitart 1 each 10/16/19 16:29 10/19/19 10:25 [place] 10/325 PO 1 each Q4H PRN Administration Pain, Moderate (4-6) Bisacodyl 10 mg 10/16/19 16:29 Dulcolax [place] QDAY PRN Constipation unrelieved by MOM Diphenhydramine HCl 25 mg 10/16/19 16:29 10/19/19 00:21 Benadryl PO 25 mg Q6H PRN Administration Itching Folic Acid 1 mg 10/17/19 10:00 10/19/19 10:25 Folvite PO 1 mg QDAY TYLER Administration Magnesium Hydroxide 30 ml 10/16/19 16:29 Milk Of Magnesia PO Q4H PRN Constipation Multivitamins 1 each 10/17/19 10:00 10/19/19 10:25 Theragran Tab PO 1 each QDAY TYLER Administration Naloxone HCl 0.1 mg 10/16/19 16:29 Naloxone IV Q2MIN PRN Res Rate </= 8 or 02 SAT < 92% Ondansetron HCl 4 mg 10/16/19 16:29 Zofran IV Q8H PRN Nausea And Vomiting Senna 17.2 mg 10/16/19 22:00 10/18/19 22:47 Senokot PO Not Given QHS TYLER
[2019-10-19 11:50] LABS: Basophils % (Manual) 0 % (0.0-1.8); Total Cells Counted 100
[2019-10-19 11:51] LABS: Anisocytosis 2+; Hypochromasia 1+; Platelet Estimate Consistent w Auto; Sickle Cells 2+; Target Cells 1+
[2019-10-19 19:49] LABS: Hematocrit 21.3 % (35.5-45.6); Hemoglobin 7.8 gm/dl (11.8-15.2)
[2019-10-19] MEDS: SENNOSIDES 8.6 MG TAB PO SCH ×2 (20:12→21:48)
[2019-10-19] MEDS: ACETAMINOPHEN 325 MG TAB PO PRN (23:55)
[2019-10-20 05:21] LABS: Hemoglobin 7.5 gm/dl (11.8-15.2); Mean Corpuscular Volume 82 fl (84-94); Red Blood Count 2.57 M/mm3 (3.65-5.03)
[2019-10-20 05:22] LABS: Basophils # (Auto) 0.1 K/mm3 (0.0-0.1); Basophils % (Auto) 0.6 % (0.0-1.8); Eosinophils # (Auto) 0.7 K/mm3 (0.0-0.4); Eosinophils % (Auto) 4.1 % (0.0-4.3); Lymphocytes # (Auto) 2.7 K/mm3 (1.2-5.4); Lymphocytes % (Auto) 15.2 % (13.4-35.0); Mean Corpuscular HGB Conc 35 % (32-34); Monocytes % (Auto) 11.5 % (0.0-7.3); Platelet Count 329 K/mm3 (140-440); Red Cell Distribution Width 25.9 % (13.2-15.2)
[2019-10-20] MEDS: HYDROcodone/ACETAMINOPHEN 10-325MG TAB PO PRN ×2 (05:48→22:26)
--- NOTE | 2019-10-20 08:48 | Progress Note ---
Assessment and Plan Assessment and plan: 10/20/19: Patient spiked temperature 101.2 F, probably post transfusion fever However patient has leukocytosis WBC 17.6, started IV Rocephin Check room air O2 sats resting and ambulatory Patient's hemoglobin improved to 7.5 after 2 units of transfusion 10/19/19 patient's hemoglobin dropped to 6.9, transfuse 1 additional unit of PRBC Patient's reticulocyte count is still high, oxygen and IV fluids, monitor reticulocyte count Reticulocyte count improved from 9.19-6.15[normal 0.7- 2.5] Assessment and plan; --Acute respiratory distress; with brief hypoxemia Resolved with nasal cannula oxygen, continue supportive care --Symptomatic anemia; hemoglobin 6.7 Improved after blood transfusion to 7.2 Today hemoglobin dropped to 6.9, no external evidence of bleeding Transfuse additional 1 unit PRBC today --Sickle cell crisis; oxygen titrate O2 sats to more than 90% IV fluids, pain medications, hematology consult if needed Patient's reticulocyte count still high --Leukocytosis; probably stress-induced Closely monitor --Mild elevation of transaminases; Sickle cell related, closely monitor, abdominal ultrasound if no improvement --DVT prophylaxis; SCDs No pharmacologic anticoagulation in view of anemia Closely monitor the patient and adjust management as needed Plan of care reviewed with the patient, his nurse And the security officers at the bedside Monitor fever, clinically If stable may discharge later today History Interval history: Seen and examined medical records reviewed Patient continues to have fever and leukocytosis Check chest x-ray to rule out pneumonia Patient is alert and awake Mild distress Vital signs reviewed Hospitalist Physical - Constitutional Vitals: Temp Pulse Resp BP Pulse Ox 98.3 F 67 18 132/67 98 10/20/19 05:52 10/20/19 05:52 10/20/19 05:52 10/20/19 05:52 10/20/19 05:52 General appearance: Present: mild distress, well-nourished, other (Febrile) - EENT Eyes: Present: PERRL, EOM intact - Neck Neck: Present: supple, normal ROM - Respiratory Respiratory effort: normal Respiratory: bilateral: diminished, rhonchi, negative: rales, wheezing - Cardiovascular Rhythm: regular Heart Sounds: Present: S1 & S2 - Extremities Extremities: no ischemia, No edema - Abdominal General gastrointestinal: soft, non-tender, non-distended, normal bowel sounds - Integumentary Integumentary: Present: clear, warm - Psychiatric Psychiatric: appropriate mood/affect, cooperative - Neurologic Neurologic: CNII-XII intact, moves all extremities Results - Labs CBC & Chem 7: 10/22/19 10:38 10/22/19 07:53 Labs: Laboratory Last Values WBC 17.6 K/mm3 (4.5-11.0) H 10/20/19 03:38 RBC 2.57 M/mm3 (3.65-5.03) L 10/20/19 03:38 Hgb 7.5 gm/dl (11.8-15.2) L 10/20/19 03:38 Hct 21.0 % (35.5-45.6) L 10/20/19 03:38 MCV 82 fl (84-94) L 10/20/19 03:38 MCH 29 pg (28-32) 10/20/19 03:38 MCHC 35 % (32-34) H 10/20/19 03:38 RDW 25.9 % (13.2-15.2) H 10/20/19 03:38 Plt Count 329 K/mm3 (140-440) 10/20/19 03:38 Lymph % (Auto) 15.2 % (13.4-35.0) 10/20/19 03:38 [place] % (Auto) 11.5 % (0.0-7.3) H 10/20/19 03:38 Eos % (Auto) 4.1 % (0.0-4.3) 10/20/19 03:38 Baso % (Auto) 0.6 % (0.0-1.8) 10/20/19 03:38 Lymph # 2.7 K/mm3 (1.2-5.4) 10/20/19 03:38 [place] # 2.0 K/mm3 (0.0-0.8) H 10/20/19 03:38 Eos # 0.7 K/mm3 (0.0-0.4) H 10/20/19 03:38 Baso # 0.1 K/mm3 (0.0-0.1) 10/20/19 03:38 Add Manual Diff Complete 10/19/19 05:14 Total Counted 100 10/19/19 05:14 Seg Neutrophils % 68.6 % (40.0-70.0) 10/20/19 03:38 Seg Neuts % (Manual) 66.0 % (40.0-70.0) 10/19/19 05:14 Band Neutrophils % 0 % 10/19/19 05:14 Lymphocytes % (Manual) 20.0 % (13.4-35.0) 10/19/19 05:14 Reactive Lymphs % (Man) 0 % 10/19/19 05:14 Monocytes % (Manual) 9.0 % (0.0-7.3) H 10/19/19 05:14 Eosinophils % (Manual) 5.0 % (0.0-4.3) H 10/19/19 05:14 Basophils % (Manual) 0 % (0.0-1.8) 10/19/19 05:14 Metamyelocytes % 0 % 10/19/19 05:14 Myelocytes % 0 % 10/19/19 05:14 Promyelocytes % 0 % 10/19/19 05:14 Blast Cells % 0 % 10/19/19 05:14 Nucleated RBC % Not Reportable 10/19/19 05:14 Seg Neutrophils # 12.1 K/mm3 (1.8-7.7) H 10/20/19 03:38 Seg Neutrophils # Man 9.8 K/mm3 (1.8-7.7) H 10/19/19 05:14 Band Neutrophils # 0.0 K/mm3 10/19/19 05:14 Lymphocytes # (Manual) 3.0 K/mm3 (1.2-5.4) 10/19/19 05:14 Abs React Lymphs (Man) 0.0 K/mm3 10/19/19 05:14 Monocytes # (Manual) 1.3 K/mm3 (0.0-0.8) H 10/19/19 05:14 Eosinophils # (Manual) 0.7 K/mm3 (0.0-0.4) H 10/19/19 05:14 Basophils # (Manual) 0.0 K/mm3 (0.0-0.1) 10/19/19 05:14 Metamyelocytes # 0.0 K/mm3 10/19/19 05:14 Myelocytes # 0.0 K/mm3 10/19/19 05:14 Promyelocytes # 0.0 K/mm3 10/19/19 05:14 Blast Cells # 0.0 K/mm3 10/19/19 05:14 WBC Morphology Not Reportable 10/19/19 05:14 Hypersegmented Neuts Not Reportable 10/19/19 05:14 Hyposegmented Neuts Not Reportable 10/19/19 05:14 Hypogranular Neuts Not Reportable 10/19/19 05:14 Smudge Cells Not Reportable 10/19/19 05:14 Toxic Granulation Not Reportable 10/19/19 05:14 Toxic Vacuolation Not Reportable 10/19/19 05:14 Dohle Bodies Not Reportable 10/19/19 05:14 Pelger-Huet Anomaly Not Reportable 10/19/19 05:14 Arian Rods Not Reportable 10/19/19 05:14 Platelet Estimate Consistent w auto 10/19/19 05:14 Clumped Platelets Not Reportable 10/19/19 05:14 Plt Clumps, EDTA Not Reportable 10/19/19 05:14 Large Platelets Not Reportable 10/19/19 05:14 Giant Platelets Not Reportable 10/19/19 05:14 Platelet Satelliting Not Reportable 10/19/19 05:14 Plt Morphology Comment Not Reportable 10/19/19 05:14 RBC Morphology Not Reportable 10/19/19 05:14 Dimorphic RBCs Not Reportable 10/19/19 05:14 Polychromasia Not Reportable 10/19/19 05:14 Hypochromasia 1+ 10/19/19 05:14 Poikilocytosis Not Reportable 10/19/19 05:14 Anisocytosis 2+ 10/19/19 05:14 Microcytosis Not Reportable 10/19/19 05:14 Macrocytosis Not Reportable 10/19/19 05:14 Spherocytes Not Reportable 10/19/19 05:14 Pappenheimer Bodies Not Reportable 10/19/19 05:14 Sickle Cells 2+ 10/19/19 05:14 Target Cells 1+ 10/19/19 05:14 Tear Drop Cells Not Reportable 10/19/19 05:14 Ovalocytes Not Reportable 10/19/19 05:14 Helmet Cells Not Reportable 10/19/19 05:14 Giordano-[place] Bodies Not Reportable 10/19/19 05:14 [place] Rings Not Reportable 10/19/19 05:14 Clif Cells Not Reportable 10/19/19 05:14 Bite Cells Not Reportable 10/19/19 05:14 Crenated Cell Not Reportable 10/19/19 05:14 Elliptocytes Not Reportable 10/19/19 05:14 Acanthocytes (Spur) Not Reportable 10/19/19 05:14 Rouleaux Not Reportable 10/19/19 05:14 Hemoglobin C Crystals Not Reportable 10/19/19 05:14 Schistocytes Not Reportable 10/19/19 05:14 Malaria parasites Not Reportable 10/19/19 05:14 Percent Retic 6.15 % (0.78-2.58) H 10/19/19 05:14 Heraclio Bodies Not Reportable 10/19/19 05:14 Hem Pathologist Commnt No 10/19/19 05:14 PT 15.2 Sec. (12.2-14.9) H 10/16/19 10:33 INR 1.18 (0.87-1.13) H 10/16/19 10:33 APTT 28.1 Sec. (24.2-36.6) 10/16/19 10:33 Sodium 137 mmol/L (137-145) 10/17/19 03:55 Potassium 4.0 mmol/L (3.6-5.0) 10/17/19 03:55 Chloride 105.2 mmol/L (98-107) 10/17/19 03:55 Carbon Dioxide 23 mmol/L (22-30) 10/17/19 03:55 Anion Gap 13 mmol/L 10/17/19 03:55 BUN 14 mg/dL (9-20) 10/17/19 03:55 Creatinine 0.7 mg/dL (0.8-1.5) L 10/17/19 03:55 Estimated GFR > 60 ml/min 10/17/19 03:55 BUN/Creatinine Ratio 20 % 10/17/19 03:55 Glucose 102 mg/dL (75-100) H 10/17/19 03:55 Calcium 8.7 mg/dL (8.4-10.2) 10/17/19 03:55 Iron 239 ug/dL (49-181) H 10/19/19 05:14 TIBC 308 mcg/dL (250-450) 10/19/19 05:14 Ferritin 89.3 ng/mL (13.0-400.0) 10/16/19 10:33 Total Bilirubin 5.30 mg/dL (0.1-1.2) H 10/16/19 10:33 AST 53 units/L (5-40) H 10/16/19 10:33 ALT 45 units/L (7-56) 10/16/19 10:33 Alkaline Phosphatase 111 units/L (35-129) 10/16/19 10:33 Lactate Dehydrogenase 607 units/L (91-180) H 10/16/19 10:33 C-Reactive Protein 0.80 mg/dL (0.00-1.30) 10/16/19 10:33 NT-Pro-B Natriuret Pep 70.60 pg/mL (0-450) 10/16/19 10:33 Total Protein 8.0 g/dL (6.3-8.2) 10/16/19 10:33 Albumin 4.4 g/dL (3.9-5) 10/16/19 10:33 Albumin/Globulin Ratio 1.2 % 10/16/19 10:33 Vitamin B12 463.8 pg/mL (211-911) 10/19/19 05:14 Folate > 20 ng/mL (7.3-26.0) 10/19/19 05:14 Procalcitonin 0.36 ng/mL (<0.15) 10/16/19 10:33 Blood Type O POSITIVE 10/19/19 12:14 Antibody Screen Positive 10/19/19 12:14 Antibody Identification Anti-C Anti-E 10/19/19 12:14 Antibody Identification Anti-C Anti-E 10/19/19 12:14 Crossmatch See Detail 10/19/19 12:14 Microbiology: Microbiology 10/17/19 23:24 Nares - Left MRSA Culture - Final Chun/IV: Voiding Method Toilet IV Catheter Type [Right Hand] INT / Saline Lock Active Medications - Current Medications Current Medications: Generic Name Dose Route Start Last Admin Trade Name Freq PRN Reason Stop Dose Admin Acetaminophen 650 mg 10/19/19 22:36 10/19/19 23:55 Tylenol PO 650 mg Q6H PRN Administration Pain, Mild (1-3) Acetaminophen/Hydrocodone Bitart 1 each 10/16/19 16:29 10/20/19 05:48 [place] 10/325 PO 1 each Q4H PRN Administration Pain, Moderate (4-6) Bisacodyl 10 mg 10/16/19 16:29 Dulcolax [place] QDAY PRN Constipation unrelieved by MOM Diphenhydramine HCl 25 mg 10/16/19 16:29 10/19/19 00:21 Benadryl PO 25 mg Q6H PRN Administration Itching Folic Acid 1 mg 10/17/19 10:00 10/19/19 10:25 Folvite PO 1 mg QDAY TYLER Administration Ceftriaxone Sodium 1 gm in 50 mls @ 100 mls/hr 10/20/19 10:00 Rocephin/Ns 1 Gm/50 Ml IV Q24HR [facility] Protocol Magnesium Hydroxide 30 ml 10/16/19 16:29 Milk Of Magnesia PO Q4H PRN Constipation Multivitamins 1 each 10/17/19 10:00 10/19/19 10:25 Theragran Tab PO 1 each QDAY TYLER Administration Naloxone HCl 0.1 mg 10/16/19 16:29 Naloxone IV Q2MIN PRN Res Rate </= 8 or 02 SAT < 92% Ondansetron HCl 4 mg 10/16/19 16:29 Zofran IV Q8H PRN Nausea And Vomiting Senna 17.2 mg 10/16/19 22:00 10/19/19 21:48 Senokot PO Not Given QHS TYLER
[2019-10-20] MEDS: MULTIVITAMINS ,THERAPEUTIC TAB PO SCH (11:14)
[2019-10-20] MEDS: cefTRIAXone/NS 1 GM/50 ML 1 GM/50 ML BAG IV SCH (11:14)
[2019-10-20] MEDS: FOLIC ACID 1 MG TAB PO SCH (11:14)
[2019-10-20] MEDS: diphenhydrAMINE 25 MG CAP PO PRN (22:26)
[2019-10-20] MEDS: SENNOSIDES 8.6 MG TAB PO SCH (22:27)
[2019-10-21 04:28] LABS: Hematocrit 22.1 % (35.5-45.6); Hemoglobin 7.9 gm/dl (11.8-15.2); Mean Corpuscular HGB Conc 36 % (32-34); Mean Corpuscular Volume 83 fl (84-94); Platelet Count 336 K/mm3 (140-440); Red Blood Count 2.66 M/mm3 (3.65-5.03)
[2019-10-21 04:29] LABS: Red Cell Distribution Width 26.1 % (13.2-15.2)
[2019-10-21] MEDS: HYDROcodone/ACETAMINOPHEN 10-325MG TAB PO PRN ×2 (05:53→18:48)
[2019-10-21] MEDS: diphenhydrAMINE 25 MG CAP PO PRN (05:54)
[2019-10-21 06:23] LABS: Anisocytosis 3+; Basophils % (Manual) 0 % (0.0-1.8); Total Cells Counted 100
[2019-10-21 06:27] LABS: Burr Cells Rare
[2019-10-21 06:28] LABS: Giant Platelets Rare; Sickle Cells 1+
[2019-10-21 06:30] LABS: Target Cells Rare
[2019-10-21 06:31] LABS: Platelet Estimate Consistent w Auto
--- NOTE | 2019-10-21 08:57 | XRay Report ---
CHEST 1 VIEW INDICATION / CLINICAL INFORMATION: MAIN: fever; HX HB-SS Disease. COMPARISON: 10/16/2019 FINDINGS: SUPPORT DEVICES: None. HEART / MEDIASTINUM: No significant abnormality. LUNGS / PLEURA: There is now moderate bilateral lower lobe consolidation which is worsened since the previous exam. This may represent atelectasis or possibly pneumonia. No edema or effusions. No pneumo thorax. ADDITIONAL FINDINGS: No significant additional findings. IMPRESSION: 1 worsening basilar lung consolidation. Signer Name: Yobani Mondragon MD Signed: 10/21/2019 8:53 AM Workstation Name: [id number]
[2019-10-21] MEDS: cefTRIAXone/NS 1 GM/50 ML 1 GM/50 ML BAG IV SCH (09:17)
[2019-10-21] MEDS: MULTIVITAMINS ,THERAPEUTIC TAB PO SCH (09:17)
[2019-10-21] MEDS: FOLIC ACID 1 MG TAB PO SCH (09:18)
[2019-10-21] MEDS ORDERED: VANCOMYCIN/NS 1 GM/250 ML 1 GM/250 ML BAG IV ONE (19:25)
[2019-10-21] MEDS ORDERED: VANCOMYCIN 2,000 MG in SODIUM CHLORIDE 0.9% 500 ML 500 ML IV SCH (21:00)
[2019-10-21] MEDS: CEFEPIME/NS 2 GM/100 ML 2 GM/100 ML BAG IV SCH (22:44)
[2019-10-21] MEDS: SODIUM CHLORIDE 0.9% 1000 ML 1,000 ML IV SCH (22:44)
[2019-10-21] MEDS: SENNOSIDES 8.6 MG TAB PO SCH (22:45)
[2019-10-22] MEDS: HYDROcodone/ACETAMINOPHEN 10-325MG TAB PO PRN ×2 (00:29→14:33)
[2019-10-22] MEDS: diphenhydrAMINE 25 MG CAP PO PRN ×2 (00:29→14:38)
[2019-10-22] MEDS: CEFEPIME/NS 2 GM/100 ML 2 GM/100 ML BAG IV SCH ×3 (06:13→21:45)
[2019-10-22 08:31] LABS: BUN/Creatinine Ratio 24; Blood Urea Nitrogen 19 mg/dL (9-20); Calcium 9.3 mg/dL (8.4-10.2); Hemolysis Index 6
[2019-10-22 11:06] LABS: Hematocrit 20.1 % (35.5-45.6); Hemoglobin 7.3 gm/dl (11.8-15.2); Mean Corpuscular HGB Conc 37 % (32-34); Mean Corpuscular Volume 83 fl (84-94); Platelet Count 365 K/mm3 (140-440); Red Blood Count 2.42 M/mm3 (3.65-5.03)
[2019-10-22 11:08] LABS: Red Cell Distribution Width 26.3 % (13.2-15.2)
[2019-10-22 12:02] LABS: Anisocytosis 3+; Macrocytosis 1+; Platelet Estimate Consistent w Auto; Sickle Cells Few; Target Cells 1+
[2019-10-22 12:04] LABS: Basophils % (Manual) 0 % (0.0-1.8); Total Cells Counted 100
--- NOTE | 2019-10-22 12:43 | Consultation ---
History of Present Illness - Reason for Consult Consult date: 10/22/19 [facility] Requesting physician: FLAVIA BELCHER - History of Present Illness The patient is a 29-year-old male with sickle cell disease admitted to the hospital on 10/16/2019 with complaints of generalized body pains and sickle cell crisis. He was also noted to be hypoxic. He was given blood transfusion. Patient had a fever spike on 10/19/2019 and another 1 on 10/20/2019. Chest x-ray was concerning for possible bilateral basilar infiltrates. He was started on antibiotics: Cefepime and vancomycin. Infectious diseases was consulted for additional evaluation. Currently, he feels well, denies any cough or shortness of breath. Denies nausea, vomiting or diarrhea. Feels close to his baseline. He is currently on nasal cannula oxygen. He is currently incarcerated. Review of Systems: General: Positive for fever HEENT: no new visual disturbance Respiratory: No cough, sputum, hemoptysis or shortness of breath Cardiovascular: No chest pain, syncope Gastrointestinal: No nausea, vomiting or diarrhea Genitourinary: No dysuria or hematuria Musculoskeletal: No new or worsening neck pain or back pain Neurologic: No headaches, seizures Hematologic: No easy bruising or bleeding Endocrine: No night sweats or acute weight loss Skin: negative for rash, jaundice Psychiatric: No suicidal or homicidal ideation Past History Past Medical History: other (Sickle cell disease) Past Surgical History: No surgical history Social history: other (Incarcerated). denies: smoking, alcohol abuse, prescription drug abuse Family history: no significant family history Medications and Allergies Allergies Allergy/AdvReac Type Severity Reaction Status Date / Time No Known Allergies Allergy Unverified 10/16/19 10:15 Home Medications Medication Instructions Recorded Confirmed Last Taken Type No Known Home Medications [No 10/18/19 10/18/19 Unknown History Reported Home Medications] Active Meds: Active Medications Acetaminophen (Tylenol) 650 mg PO Q6H PRN PRN Reason: Pain, Mild (1-3) Last Admin: 10/19/19 23:55 Dose: 650 mg Documented by: Acetaminophen/Hydrocodone Bitart ([place] 10/325) 1 each PO Q4H PRN PRN Reason: Pain, Moderate (4-6) Last Admin: 10/22/19 00:29 Dose: 1 each Documented by: Bisacodyl (Dulcolax) 10 mg [place] QDAY PRN PRN Reason: Constipation unrelieved by MOM Diphenhydramine HCl (Benadryl) 25 mg PO Q6H PRN PRN Reason: Itching Last Admin: 10/22/19 00:29 Dose: 25 mg Documented by: Folic Acid (Folvite) 1 mg PO QDAY [facility] Last Admin: 10/21/19 09:18 Dose: 1 mg Documented by: Cefepime HCl (Cefepime/Ns 2 Gm/100 Ml) 2 gm in 100 mls @ 200 mls/hr IV Q8HR [facility]; Protocol Last Infusion: 10/22/19 08:16 Dose: Infused Documented by: Sodium Chloride (Nacl 0.9% 1000 Ml) 1,000 mls @ 75 mls/hr IV DIRECT [facility] Last Admin: 10/21/19 22:44 Dose: 75 mls/hr Documented by: Vancomycin HCl 1,250 mg/ (Sodium Chloride) 275 mls @ 166.667 mls/hr IV Q8HR [facility] Magnesium Hydroxide (Milk Of Magnesia) 30 ml PO Q4H PRN PRN Reason: Constipation Multivitamins (Theragran Tab) 1 each PO QDAY [facility] Last Admin: 10/21/19 09:17 Dose: 1 each Documented by: Naloxone HCl (Naloxone) 0.1 mg IV Q2MIN PRN PRN Reason: Res Rate </= 8 or 02 SAT < 92% Ondansetron HCl (Zofran) 4 mg IV Q8H PRN PRN Reason: Nausea And Vomiting Senna (Senokot) 17.2 mg PO QHS [facility] Last Admin: 10/21/19 22:45 Dose: 17.2 mg Documented by: Physical Examination - Physical Exam Narrative exam: Physical Exam: Constitutional: Alert, cooperative. No acute distress Head, Ears, Nose: Normocephalic, atraumatic. External ears, nose normal Eyes: Conjunctivae/corneas clear. No icterus. No ptosis. Neck: Supple, no meningeal signs Oral: dentition fair, no thrush Cardiovascular: S1, S2 normal. Respiratory: Bilateral basilar crackles present GI: Soft, non-tender; bowel sounds normal. No peritoneal signs Musculoskeletal: No pedal edema, no cyanosis. Skin: No rash or abscess Hem/Lymphatic: No palpable cervical or supraclavicular nodes. No lymphangitis Psych: Mood ok. Affect normal Neurological: Awake, alert, oriented. No gross abnormality - Constitutional Vitals: Vital Signs Temp Pulse Resp BP Pulse Ox 98.3 F 80 18 115/54 95 10/22/19 11:45 10/22/19 11:45 10/22/19 11:45 10/22/19 11:45 10/22/19 11:45 Temperature -Last 24 Hours Temperature 98.3 F Temperature 98.3 F Temperature 98.8 F Temperature 98.5 F Temperature 98.6 F Temperature 99.4 F Temperature 99.3 F Results - Labs CBC & Chem 7: 10/22/19 10:38 10/22/19 07:53 Labs: Abnormal lab results 10/22/19 10/22/19 Range/Units 07:53 10:38 WBC 15.4 H (4.5-11.0) K/mm3 RBC 2.42 L (3.65-5.03) M/mm3 Hgb 7.3 L (11.8-15.2) gm/dl Hct 20.1 L (35.5-45.6) % MCV 83 L (84-94) fl MCHC 37 H (32-34) % RDW 26.3 H (13.2-15.2) % Seg Neuts % (Manual) 90.0 H (40.0-70.0) % Lymphocytes % (Manual) 6.0 L (13.4-35.0) % Seg Neutrophils # Man 13.9 H (1.8-7.7) K/mm3 Lymphocytes # (Manual) 0.9 L (1.2-5.4) K/mm3 Carbon Dioxide 20 L (22-30) mmol/L - Imaging and Cardiology Chest x-ray: report reviewed, image reviewed (minimal bibasilar infiltrates) Assessment and Plan Cultures: 10/21/2019 blood culture: No growth 10/17/2019 MRSA nasal culture: Negative A/P: 29-year-old male with sickle cell disease: #Bilateral basilar infiltrates concerning for pneumonia: 2 episodes of fever. #Acute respiratory failure: On minimal oxygen. #Sickle cell crisis #Leukocytosis Recs: Continue IV cefepime, vancomycin Recheck CBC, procalcitonin in a.m., if improvement and no fevers, can discharge on PO Ceftin 500 mg twice daily plus PO doxycycline 100 mg twice daily for 5 days Candida Brooke MD, FACP [facility] C: [phone] O: [phone] F: [phone]
[2019-10-22] MEDS: MULTIVITAMINS ,THERAPEUTIC TAB PO SCH (14:34)
[2019-10-22] MEDS: FOLIC ACID 1 MG TAB PO SCH (14:35)
[2019-10-22] MEDS: VANCOMYCIN 1,250 MG in SODIUM CHLORIDE 0.9% 250ML 250 ML IV SCH ×2 (16:00→21:44)
--- NOTE | 2019-10-22 20:11 | Progress Note ---
Assessment and Plan Assessment and plan: 10/21/19: Patient has persistent fevers T-max last 24 hours 101.1 Worsening leukocytosis WBC of 19.1, rule out sepsis Blood cultures, urine cultures, chest x-ray pneumonia [H CAP ] IV Vanco, cefepime, follow cultures; ID consult 10/20/19: Patient spiked temperature 101.2 F, probably post transfusion fever However patient has leukocytosis WBC 17.6, started IV Rocephin Check room air O2 sats resting and ambulatory Patient's hemoglobin improved to 7.5 after 2 units of transfusion 10/19/19 patient's hemoglobin dropped to 6.9, transfuse 1 additional unit of PRBC Patient's reticulocyte count is still high, oxygen and IV fluids, monitor reticulocyte count Reticulocyte count improved from 9.19-6.15[normal 0.7- 2.5] Assessment and plan; --Acute respiratory distress; with brief hypoxemia Resolved with nasal cannula oxygen, continue supportive care --Pneumonia/H CAP; not present on admission IV Vanco, cefepime, oxygen, supportive care ID consult --Symptomatic anemia; hemoglobin 6.7 Improved after blood transfusion to 7.2 Today hemoglobin dropped to 6.9, no external evidence of bleeding Transfuse additional 1 unit PRBC today --Sickle cell crisis; oxygen titrate O2 sats to more than 90% IV fluids, pain medications, hematology consult if needed Patient's reticulocyte count still high --Leukocytosis; probably stress-induced Closely monitor --Mild elevation of transaminases; Sickle cell related, closely monitor, abdominal ultrasound if no improvement --DVT prophylaxis; SCDs No pharmacologic anticoagulation in view of anemia Closely monitor the patient and adjust management as needed Plan of care reviewed with the patient, his nurse And the security officers at the bedside Monitor fever, clinically If stable may discharge later today History Interval history: Patient seen and examined at the bedside this morning Patient's chart medications tests reviewed Patient is afebrile last 24 hours, however still has elevated white count X-ray findings persistent with pneumonia Patient in mild shortness of breath and distress Vital signs noted Hospitalist Physical - Constitutional Vitals: Temp Pulse Resp BP Pulse Ox 98.1 F 68 18 119/59 97 10/22/19 15:55 10/22/19 15:55 10/22/19 15:55 10/22/19 15:55 10/22/19 15:55 General appearance: Present: mild distress, well-nourished, other (Afebrile) - EENT Eyes: Present: PERRL, EOM intact - Neck Neck: Present: supple, normal ROM - Respiratory Respiratory effort: normal Respiratory: bilateral: diminished, rhonchi, negative: rales, wheezing - Cardiovascular Rhythm: regular Heart Sounds: Present: S1 & S2 - Extremities Extremities: no ischemia, No edema - Abdominal General gastrointestinal: soft, non-tender, non-distended, normal bowel sounds - Integumentary Integumentary: Present: clear, warm - Psychiatric Psychiatric: appropriate mood/affect, cooperative - Neurologic Neurologic: CNII-XII intact, moves all extremities Results - Labs CBC & Chem 7: 10/22/19 10:38 10/22/19 07:53 Labs: Laboratory Last Values WBC 15.4 K/mm3 (4.5-11.0) H 10/22/19 10:38 RBC 2.42 M/mm3 (3.65-5.03) L 10/22/19 10:38 Hgb 7.3 gm/dl (11.8-15.2) L 10/22/19 10:38 Hct 20.1 % (35.5-45.6) L 10/22/19 10:38 MCV 83 fl (84-94) L 10/22/19 10:38 MCH 30 pg (28-32) 10/22/19 10:38 MCHC 37 % (32-34) H 10/22/19 10:38 RDW 26.3 % (13.2-15.2) H 10/22/19 10:38 Plt Count 365 K/mm3 (140-440) 10/22/19 10:38 Lymph % (Auto) 15.2 % (13.4-35.0) 10/20/19 03:38 [place] % (Auto) 11.5 % (0.0-7.3) H 10/20/19 03:38 Eos % (Auto) 4.1 % (0.0-4.3) 10/20/19 03:38 Baso % (Auto) 0.6 % (0.0-1.8) 10/20/19 03:38 Lymph # 2.7 K/mm3 (1.2-5.4) 10/20/19 03:38 [place] # 2.0 K/mm3 (0.0-0.8) H 10/20/19 03:38 Eos # 0.7 K/mm3 (0.0-0.4) H 10/20/19 03:38 Baso # 0.1 K/mm3 (0.0-0.1) 10/20/19 03:38 Add Manual Diff Complete 10/22/19 10:38 Total Counted 100 10/22/19 10:38 Seg Neutrophils % 68.6 % (40.0-70.0) 10/20/19 03:38 Seg Neuts % (Manual) 90.0 % (40.0-70.0) H 10/22/19 10:38 Band Neutrophils % 0 % 10/22/19 10:38 Lymphocytes % (Manual) 6.0 % (13.4-35.0) L 10/22/19 10:38 Reactive Lymphs % (Man) 0 % 10/22/19 10:38 Monocytes % (Manual) 3.0 % (0.0-7.3) 10/22/19 10:38 Eosinophils % (Manual) 1.0 % (0.0-4.3) 10/22/19 10:38 Basophils % (Manual) 0 % (0.0-1.8) 10/22/19 10:38 Metamyelocytes % 0 % 10/22/19 10:38 Myelocytes % 0 % 10/22/19 10:38 Promyelocytes % 0 % 10/22/19 10:38 Blast Cells % 0 % 10/22/19 10:38 Nucleated RBC % Not Reportable 10/22/19 10:38 Seg Neutrophils # 12.1 K/mm3 (1.8-7.7) H 10/20/19 03:38 Seg Neutrophils # Man 13.9 K/mm3 (1.8-7.7) H 10/22/19 10:38 Band Neutrophils # 0.0 K/mm3 10/22/19 10:38 Lymphocytes # (Manual) 0.9 K/mm3 (1.2-5.4) L 10/22/19 10:38 Abs React Lymphs (Man) 0.0 K/mm3 10/22/19 10:38 Monocytes # (Manual) 0.5 K/mm3 (0.0-0.8) 10/22/19 10:38 Eosinophils # (Manual) 0.2 K/mm3 (0.0-0.4) 10/22/19 10:38 Basophils # (Manual) 0.0 K/mm3 (0.0-0.1) 10/22/19 10:38 Metamyelocytes # 0.0 K/mm3 10/22/19 10:38 Myelocytes # 0.0 K/mm3 10/22/19 10:38 Promyelocytes # 0.0 K/mm3 10/22/19 10:38 Blast Cells # 0.0 K/mm3 10/22/19 10:38 WBC Morphology Not Reportable 10/22/19 10:38 Hypersegmented Neuts Not Reportable 10/22/19 10:38 Hyposegmented Neuts Not Reportable 10/22/19 10:38 Hypogranular Neuts Not Reportable 10/22/19 10:38 Smudge Cells Not Reportable 10/22/19 10:38 Toxic Granulation Not Reportable 10/22/19 10:38 Toxic Vacuolation Not Reportable 10/22/19 10:38 Dohle Bodies Not Reportable 10/22/19 10:38 Pelger-Huet Anomaly Not Reportable 10/22/19 10:38 Arian Rods Not Reportable 10/22/19 10:38 Platelet Estimate Consistent w auto 10/22/19 10:38 Clumped Platelets Not Reportable 10/22/19 10:38 Plt Clumps, EDTA Not Reportable 10/22/19 10:38 Large Platelets Not Reportable 10/22/19 10:38 Giant Platelets Not Reportable 10/22/19 10:38 Platelet Satelliting Not Reportable 10/22/19 10:38 Plt Morphology Comment Not Reportable 10/22/19 10:38 RBC Morphology Not Reportable 10/22/19 10:38 Dimorphic RBCs Not Reportable 10/22/19 10:38 Polychromasia Not Reportable 10/22/19 10:38 Hypochromasia Not Reportable 10/22/19 10:38 Poikilocytosis Not Reportable 10/22/19 10:38 Anisocytosis 3+ 10/22/19 10:38 Microcytosis Not Reportable 10/22/19 10:38 Macrocytosis 1+ 10/22/19 10:38 Spherocytes Not Reportable 10/22/19 10:38 Pappenheimer Bodies Not Reportable 10/22/19 10:38 Sickle Cells Few 10/22/19 10:38 Target Cells 1+ 10/22/19 10:38 Tear Drop Cells Not Reportable 10/22/19 10:38 Ovalocytes Not Reportable 10/22/19 10:38 Helmet Cells Not Reportable 10/22/19 10:38 Giord[place] Bodies Not Reportable 10/22/19 10:38 [place] Rings Not Reportable 10/22/19 10:38 [place] Cells Not Reportable 10/22/19 10:38 Bite Cells Not Reportable 10/22/19 10:38 Crenated Cell Not Reportable 10/22/19 10:38 Elliptocytes Not Reportable 10/22/19 10:38 Acanthocytes (Spur) Not Reportable 10/22/19 10:38 Rouleaux Not Reportable 10/22/19 10:38 Hemoglobin C Crystals Not Reportable 10/22/19 10:38 Schistocytes Not Reportable 10/22/19 10:38 Malaria parasites Not Reportable 10/22/19 10:38 Percent Retic 6.15 % (0.78-2.58) H 10/19/19 05:14 Heraclio Bodies Not Reportable 10/22/19 10:38 Hem Pathologist Commnt No 10/22/19 10:38 PT 15.2 Sec. (12.2-14.9) H 10/16/19 10:33 INR 1.18 (0.87-1.13) H 10/16/19 10:33 APTT 28.1 Sec. (24.2-36.6) 10/16/19 10:33 Sodium 137 mmol/L (137-145) 10/22/19 07:53 Potassium 4.8 mmol/L (3.6-5.0) 10/22/19 07:53 Chloride 102.1 mmol/L (98-107) 10/22/19 07:53 Carbon Dioxide 20 mmol/L (22-30) L 10/22/19 07:53 Anion Gap 20 mmol/L 10/22/19 07:53 BUN 19 mg/dL (9-20) 10/22/19 07:53 Creatinine 0.8 mg/dL (0.8-1.5) 10/22/19 07:53 Estimated GFR > 60 ml/min 10/22/19 07:53 BUN/Creatinine Ratio 24 % 10/22/19 07:53 Glucose 98 mg/dL (75-100) 10/22/19 07:53 Calcium 9.3 mg/dL (8.4-10.2) 10/22/19 07:53 Iron 239 ug/dL (49-181) H 10/19/19 05:14 TIBC 308 mcg/dL (250-450) 10/19/19 05:14 Ferritin 89.3 ng/mL (13.0-400.0) 10/16/19 10:33 Total Bilirubin 5.30 mg/dL (0.1-1.2) H 10/16/19 10:33 AST 53 units/L (5-40) H 10/16/19 10:33 ALT 45 units/L (7-56) 10/16/19 10:33 Alkaline Phosphatase 111 units/L (35-129) 10/16/19 10:33 Lactate Dehydrogenase 607 units/L (91-180) H 10/16/19 10:33 C-Reactive Protein 0.80 mg/dL (0.00-1.30) 10/16/19 10:33 NT-Pro-B Natriuret Pep 70.60 pg/mL (0-450) 10/16/19 10:33 Total Protein 8.0 g/dL (6.3-8.2) 10/16/19 10:33 Albumin 4.4 g/dL (3.9-5) 10/16/19 10:33 Albumin/Globulin Ratio 1.2 % 10/16/19 10:33 Vitamin B12 463.8 pg/mL (211-911) 10/19/19 05:14 Folate > 20 ng/mL (7.3-26.0) 10/19/19 05:14 Procalcitonin 0.36 ng/mL (<0.15) 10/16/19 10:33 Blood Type O POSITIVE 10/19/19 12:14 Antibody Screen Positive 10/19/19 12:14 Antibody Identification Anti-C Anti-E 10/19/19 12:14 Antibody Identification Anti-C Anti-E 10/19/19 12:14 Crossmatch See Detail 10/19/19 12:14 Microbiology: Microbiology 04/20 Unknown Peripheral/Venous Blood Culture - Preliminary NO GROWTH AFTER 24 HOURS 10/21/19 Unknown Peripheral/Venous Blood Culture - Preliminary NO GROWTH AFTER 24 HOURS Chun/IV: Voiding Method Urinal IV Catheter Type [Right Hand] INT / Saline Lock Active Medications - Current Medications Current Medications: Generic Name Dose Route Start Last Admin Trade Name Freq PRN Reason Stop Dose Admin Acetaminophen 650 mg 10/19/19 22:36 10/19/19 23:55 Tylenol PO 650 mg Q6H PRN Administration Pain, Mild (1-3) Acetaminophen/Hydrocodone Bitart 1 each 10/16/19 16:29 10/22/19 14:33 [place] 10/325 PO 1 each Q4H PRN Administration Pain, Moderate (4-6) Bisacodyl 10 mg 10/16/19 16:29 Dulcolax [place] QDAY PRN Constipation unrelieved by MOM Diphenhydramine HCl 25 mg 10/16/19 16:29 10/22/19 14:38 Benadryl PO 25 mg Q6H PRN Administration Itching Folic Acid 1 mg 10/17/19 10:00 10/22/19 14:35 Folvite PO 1 mg QDAY TYLER Administration Cefepime HCl 2 gm in 100 mls @ 200 mls/hr 10/21/19 22:00 10/22/19 15:49 Cefepime/Ns 2 Gm/100 Ml IV 200 mls/hr Q8HR TYLER Administration Protocol Sodium Chloride 1,000 mls @ 75 mls/hr 10/21/19 19:30 10/21/19 22:44 Nacl 0.9% 1000 Ml IV 75 mls/hr DIRECT TYLER Administration Vancomycin HCl 1,250 mg/ 275 mls @ 166.667 mls/hr 10/22/19 14:00 10/22/19 16:00 Sodium Chloride IV 166.667 mls/hr Q8HR TYLER Administration Magnesium Hydroxide 30 ml 10/16/19 16:29 Milk Of Magnesia PO Q4H PRN Constipation Multivitamins 1 each 10/17/19 10:00 10/22/19 14:34 Theragran Tab PO 1 each QDAY TYLER Administration Naloxone HCl 0.1 mg 10/16/19 16:29 Naloxone IV Q2MIN PRN Res Rate </= 8 or 02 SAT < 92% Ondansetron HCl 4 mg 10/16/19 16:29 Zofran IV Q8H PRN Nausea And Vomiting Senna 17.2 mg 10/16/19 22:00 10/21/19 22:45 Senokot PO 17.2 mg QHS TYLER Administration
--- NOTE | 2019-10-22 20:12 | Progress Note ---
Assessment and Plan Assessment and plan: 10/22/19: Patient is afebrile last 24 hours Feels slightly better, leukocytosis decreased to 15 K On IV antibiotics, ID evaluated the patient, agree with the current management If patient improves may be discharged on oral antibiotics tomorrow 10/20/19: Patient spiked temperature 101.2 F, probably post transfusion fever However patient has leukocytosis WBC 17.6, started IV Rocephin Check room air O2 sats resting and ambulatory Patient's hemoglobin improved to 7.5 after 2 units of transfusion 10/19/19 patient's hemoglobin dropped to 6.9, transfuse 1 additional unit of PRBC Patient's reticulocyte count is still high, oxygen and IV fluids, monitor reticulocyte count Reticulocyte count improved from 9.19-6.15[normal 0.7- 2.5] Assessment and plan; --Acute respiratory distress; with brief hypoxemia Resolved with nasal cannula oxygen, continue supportive care --Symptomatic anemia; hemoglobin 6.7 Improved after blood transfusion to 7.2 Today hemoglobin dropped to 6.9, no external evidence of bleeding Transfuse additional 1 unit PRBC today --Sickle cell crisis; oxygen titrate O2 sats to more than 90% IV fluids, pain medications, hematology consult if needed Patient's reticulocyte count still high --Leukocytosis; probably stress-induced Closely monitor --Mild elevation of transaminases; Sickle cell related, closely monitor, abdominal ultrasound if no improvement --DVT prophylaxis; SCDs No pharmacologic anticoagulation in view of anemia Closely monitor the patient and adjust management as needed Plan of care reviewed with the patient, his nurse And the security officers at the bedside Monitor fever, clinically If stable may discharge later today History Interval history: Patient seen and examined today Patient feels slightly better wants to be discharged Mild shortness of breath and cough Afebrile vital signs reviewed Hospitalist Physical - Constitutional Vitals: Temp Pulse Resp BP Pulse Ox 98.1 F 68 18 119/59 97 10/22/19 15:55 10/22/19 15:55 10/22/19 15:55 10/22/19 15:55 10/22/19 15:55 General appearance: Present: mild distress, well-nourished, other (Afebrile) - EENT Eyes: Present: PERRL, EOM intact - Neck Neck: Present: supple, normal ROM - Respiratory Respiratory effort: normal Respiratory: bilateral: diminished, rhonchi, negative: rales, wheezing - Cardiovascular Rhythm: regular Heart Sounds: Present: S1 & S2 - Extremities Extremities: no ischemia, No edema - Abdominal General gastrointestinal: soft, non-tender, non-distended, normal bowel sounds - Integumentary Integumentary: Present: clear - Psychiatric Psychiatric: appropriate mood/affect, cooperative - Neurologic Neurologic: CNII-XII intact, moves all extremities Results - Labs CBC & Chem 7: 10/22/19 10:38 10/22/19 07:53 Labs: Laboratory Last Values WBC 15.4 K/mm3 (4.5-11.0) H 10/22/19 10:38 RBC 2.42 M/mm3 (3.65-5.03) L 10/22/19 10:38 Hgb 7.3 gm/dl (11.8-15.2) L 10/22/19 10:38 Hct 20.1 % (35.5-45.6) L 10/22/19 10:38 MCV 83 fl (84-94) L 10/22/19 10:38 MCH 30 pg (28-32) 10/22/19 10:38 MCHC 37 % (32-34) H 10/22/19 10:38 RDW 26.3 % (13.2-15.2) H 10/22/19 10:38 Plt Count 365 K/mm3 (140-440) 10/22/19 10:38 Lymph % (Auto) 15.2 % (13.4-35.0) 10/20/19 03:38 [place] % (Auto) 11.5 % (0.0-7.3) H 10/20/19 03:38 Eos % (Auto) 4.1 % (0.0-4.3) 10/20/19 03:38 Baso % (Auto) 0.6 % (0.0-1.8) 10/20/19 03:38 Lymph # 2.7 K/mm3 (1.2-5.4) 10/20/19 03:38 [place] # 2.0 K/mm3 (0.0-0.8) H 10/20/19 03:38 Eos # 0.7 K/mm3 (0.0-0.4) H 10/20/19 03:38 Baso # 0.1 K/mm3 (0.0-0.1) 10/20/19 03:38 Add Manual Diff Complete 10/22/19 10:38 Total Counted 100 10/22/19 10:38 Seg Neutrophils % 68.6 % (40.0-70.0) 10/20/19 03:38 Seg Neuts % (Manual) 90.0 % (40.0-70.0) H 10/22/19 10:38 Band Neutrophils % 0 % 10/22/19 10:38 Lymphocytes % (Manual) 6.0 % (13.4-35.0) L 10/22/19 10:38 Reactive Lymphs % (Man) 0 % 10/22/19 10:38 Monocytes % (Manual) 3.0 % (0.0-7.3) 10/22/19 10:38 Eosinophils % (Manual) 1.0 % (0.0-4.3) 10/22/19 10:38 Basophils % (Manual) 0 % (0.0-1.8) 10/22/19 10:38 Metamyelocytes % 0 % 10/22/19 10:38 Myelocytes % 0 % 10/22/19 10:38 Promyelocytes % 0 % 10/22/19 10:38 Blast Cells % 0 % 10/22/19 10:38 Nucleated RBC % Not Reportable 10/22/19 10:38 Seg Neutrophils # 12.1 K/mm3 (1.8-7.7) H 10/20/19 03:38 Seg Neutrophils # Man 13.9 K/mm3 (1.8-7.7) H 10/22/19 10:38 Band Neutrophils # 0.0 K/mm3 10/22/19 10:38 Lymphocytes # (Manual) 0.9 K/mm3 (1.2-5.4) L 10/22/19 10:38 Abs React Lymphs (Man) 0.0 K/mm3 10/22/19 10:38 Monocytes # (Manual) 0.5 K/mm3 (0.0-0.8) 10/22/19 10:38 Eosinophils # (Manual) 0.2 K/mm3 (0.0-0.4) 10/22/19 10:38 Basophils # (Manual) 0.0 K/mm3 (0.0-0.1) 10/22/19 10:38 Metamyelocytes # 0.0 K/mm3 10/22/19 10:38 Myelocytes # 0.0 K/mm3 10/22/19 10:38 Promyelocytes # 0.0 K/mm3 10/22/19 10:38 Blast Cells # 0.0 K/mm3 10/22/19 10:38 WBC Morphology Not Reportable 10/22/19 10:38 Hypersegmented Neuts Not Reportable 10/22/19 10:38 Hyposegmented Neuts Not Reportable 10/22/19 10:38 Hypogranular Neuts Not Reportable 10/22/19 10:38 Smudge Cells Not Reportable 10/22/19 10:38 Toxic Granulation Not Reportable 10/22/19 10:38 Toxic Vacuolation Not Reportable 10/22/19 10:38 Dohle Bodies Not Reportable 10/22/19 10:38 Pelger-Huet Anomaly Not Reportable 10/22/19 10:38 Arian Rods Not Reportable 10/22/19 10:38 Platelet Estimate Consistent w auto 10/22/19 10:38 Clumped Platelets Not Reportable 10/22/19 10:38 Plt Clumps, EDTA Not Reportable 10/22/19 10:38 Large Platelets Not Reportable 10/22/19 10:38 Giant Platelets Not Reportable 10/22/19 10:38 Platelet Satelliting Not Reportable 10/22/19 10:38 Plt Morphology Comment Not Reportable 10/22/19 10:38 RBC Morphology Not Reportable 10/22/19 10:38 Dimorphic RBCs Not Reportable 10/22/19 10:38 Polychromasia Not Reportable 10/22/19 10:38 Hypochromasia Not Reportable 10/22/19 10:38 Poikilocytosis Not Reportable 10/22/19 10:38 Anisocytosis 3+ 10/22/19 10:38 Microcytosis Not Reportable 10/22/19 10:38 Macrocytosis 1+ 10/22/19 10:38 Spherocytes Not Reportable 10/22/19 10:38 Pappenheimer Bodies Not Reportable 10/22/19 10:38 Sickle Cells Few 10/22/19 10:38 Target Cells 1+ 10/22/19 10:38 Tear Drop Cells Not Reportable 10/22/19 10:38 Ovalocytes Not Reportable 10/22/19 10:38 Helmet Cells Not Reportable 10/22/19 10:[address] [place] Bodies Not Reportable 10/22/19 10:38 [employer] Rings Not Reportable 10/22/19 10:38 [place] Cells Not Reportable 10/22/19 10:38 Bite Cells Not Reportable 10/22/19 10:38 Crenated Cell Not Reportable 10/22/19 10:38 Elliptocytes Not Reportable 10/22/19 10:38 Acanthocytes (Spur) Not Reportable 10/22/19 10:38 Rouleaux Not Reportable 10/22/19 10:38 Hemoglobin C Crystals Not Reportable 10/22/19 10:38 Schistocytes Not Reportable 10/22/19 10:38 Malaria parasites Not Reportable 10/22/19 10:38 Percent Retic 6.15 % (0.78-2.58) H 10/19/19 05:14 Heraclio Bodies Not Reportable 10/22/19 10:38 Hem Pathologist Commnt No 10/22/19 10:38 PT 15.2 Sec. (12.2-14.9) H 10/16/19 10:33 INR 1.18 (0.87-1.13) H 10/16/19 10:33 APTT 28.1 Sec. (24.2-36.6) 10/16/19 10:33 Sodium 137 mmol/L (137-145) 10/22/19 07:53 Potassium 4.8 mmol/L (3.6-5.0) 10/22/19 07:53 Chloride 102.1 mmol/L (98-107) 10/22/19 07:53 Carbon Dioxide 20 mmol/L (22-30) L 10/22/19 07:53 Anion Gap 20 mmol/L 10/22/19 07:53 BUN 19 mg/dL (9-20) 10/22/19 07:53 Creatinine 0.8 mg/dL (0.8-1.5) 10/22/19 07:53 Estimated GFR > 60 ml/min 10/22/19 07:53 BUN/Creatinine Ratio 24 % 10/22/19 07:53 Glucose 98 mg/dL (75-100) 10/22/19 07:53 Calcium 9.3 mg/dL (8.4-10.2) 10/22/19 07:53 Iron 239 ug/dL (49-181) H 10/19/19 05:14 TIBC 308 mcg/dL (250-450) 10/19/19 05:14 Ferritin 89.3 ng/mL (13.0-400.0) 10/16/19 10:33 Total Bilirubin 5.30 mg/dL (0.1-1.2) H 10/16/19 10:33 AST 53 units/L (5-40) H 10/16/19 10:33 ALT 45 units/L (7-56) 10/16/19 10:33 Alkaline Phosphatase 111 units/L (35-129) 10/16/19 10:33 Lactate Dehydrogenase 607 units/L (91-180) H 10/16/19 10:33 C-Reactive Protein 0.80 mg/dL (0.00-1.30) 10/16/19 10:33 NT-Pro-B Natriuret Pep 70.60 pg/mL (0-450) 10/16/19 10:33 Total Protein 8.0 g/dL (6.3-8.2) 10/16/19 10:33 Albumin 4.4 g/dL (3.9-5) 10/16/19 10:33 Albumin/Globulin Ratio 1.2 % 10/16/19 10:33 Vitamin B12 463.8 pg/mL (211-911) 10/19/19 05:14 Folate > 20 ng/mL (7.3-26.0) 10/19/19 05:14 Procalcitonin 0.36 ng/mL (<0.15) 10/16/19 10:33 Blood Type O POSITIVE 10/19/19 12:14 Antibody Screen Positive 10/19/19 12:14 Antibody Identification Anti-C Anti-E 10/19/19 12:14 Antibody Identification Anti-C Anti-E 10/19/19 12:14 Crossmatch See Detail 10/19/19 12:14 Microbiology: Microbiology 10/21/19 Unknown Peripheral/Venous Blood Culture - Preliminary NO GROWTH AFTER 24 HOURS 10/21/19 Unknown Peripheral/Venous Blood Culture - Preliminary NO GROWTH AFTER 24 HOURS Chun/IV: Voiding Method Urinal IV Catheter Type [Right Hand] INT / Saline Lock Active Medications - Current Medications Current Medications: Generic Name Dose Route Start Last Admin Trade Name Freq PRN Reason Stop Dose Admin Acetaminophen 650 mg 10/19/19 22:36 10/19/19 23:55 Tylenol PO 650 mg Q6H PRN Administration Pain, Mild (1-3) Acetaminophen/Hydrocodone Bitart 1 each 10/16/19 16:29 10/22/19 14:33 [place] 10/325 PO 1 each Q4H PRN Administration Pain, Moderate (4-6) Bisacodyl 10 mg 10/16/19 16:29 Dulcolax [place] QDAY PRN Constipation unrelieved by MOM Diphenhydramine HCl 25 mg 10/16/19 16:29 10/22/19 14:38 Benadryl PO 25 mg Q6H PRN Administration Itching Folic Acid 1 mg 10/17/19 10:00 10/22/19 14:35 Folvite PO 1 mg QDAY TYLER Administration Cefepime HCl 2 gm in 100 mls @ 200 mls/hr 10/21/19 22:00 10/22/19 15:49 Cefepime/Ns 2 Gm/100 Ml IV 200 mls/hr Q8HR TYLER Administration Protocol Sodium Chloride 1,000 mls @ 75 mls/hr 10/21/19 19:30 10/21/19 22:44 Nacl 0.9% 1000 Ml IV 75 mls/hr DIRECT TYLER Administration Vancomycin HCl 1,250 mg/ 275 mls @ 166.667 mls/hr 10/22/19 14:00 10/22/19 16:00 Sodium Chloride IV 166.667 mls/hr Q8HR TYLER Administration Magnesium Hydroxide 30 ml 10/16/19 16:29 Milk Of Magnesia PO Q4H PRN Constipation Multivitamins 1 each 10/17/19 10:00 10/22/19 14:34 Theragran Tab PO 1 each QDAY TYLER Administration Naloxone HCl 0.1 mg 10/16/19 16:29 Naloxone IV Q2MIN PRN Res Rate </= 8 or 02 SAT < 92% Ondansetron HCl 4 mg 10/16/19 16:29 Zofran IV Q8H PRN Nausea And Vomiting Senna 17.2 mg 10/16/19 22:00 10/21/19 22:45 Senokot PO 17.2 mg QHS TYLER Administration
[2019-10-22] MEDS: SENNOSIDES 8.6 MG TAB PO SCH (21:45)
[2019-10-23] MEDS: VANCOMYCIN 1,250 MG in SODIUM CHLORIDE 0.9% 250ML 250 ML IV SCH ×2 (05:42→19:19)
[2019-10-23] MEDS: CEFEPIME/NS 2 GM/100 ML 2 GM/100 ML BAG IV SCH ×2 (05:44→13:36)
[2019-10-23 07:59] LABS: Hemoglobin 6.6 gm/dl (11.8-15.2); Mean Corpuscular HGB Conc 36 % (32-34); Mean Corpuscular Volume 83 fl (84-94); Platelet Count 348 K/mm3 (140-440)
[2019-10-23 08:32] LABS: Hematocrit 18.3 % (35.5-45.6); Red Cell Distribution Width 25.8 % (13.2-15.2)
--- NOTE | 2019-10-23 08:46 | Progress Note ---
Assessment and Plan Assessment and plan: 10/23/19; hemoglobin 6.6 today, sickle cell anemia Transfuse 1 unit of PRBC If hemoglobin improves may discharge the patient home this evening 10/22/19: Patient is afebrile last 24 hours Feels slightly better, leukocytosis decreased to 15 K On IV antibiotics, ID evaluated the patient, agree with the current management 10/20/19: Patient spiked temperature 101.2 F, probably post transfusion fever However patient has leukocytosis WBC 17.6, started IV Rocephin Check room air O2 sats resting and ambulatory Patient's hemoglobin improved to 7.5 after 2 units of transfusion 10/19/19 patient's hemoglobin dropped to 6.9, transfuse 1 additional unit of PRBC Patient's reticulocyte count is still high, oxygen and IV fluids, monitor reticulocyte count Reticulocyte count improved from 9.19-6.15[normal 0.7- 2.5] Assessment and plan; --Acute respiratory distress; with brief hypoxemia Resolved with nasal cannula oxygen, continue supportive care --Symptomatic anemia; hemoglobin 6.7 Improved after blood transfusion to 7.2 Today hemoglobin dropped to 6.9, no external evidence of bleeding Transfuse additional 1 unit PRBC today --Sickle cell crisis; oxygen titrate O2 sats to more than 90% IV fluids, pain medications, hematology consult if needed Patient's reticulocyte count still high --Leukocytosis; probably stress-induced Closely monitor --Mild elevation of transaminases; Sickle cell related, closely monitor, abdominal ultrasound if no improvement --DVT prophylaxis; SCDs No pharmacologic anticoagulation in view of anemia Closely monitor the patient and adjust management as needed Plan of care reviewed with the patient, his nurse And the security officers at the bedside Monitor fever, clinically If stable may discharge later today Hospitalist Physical - Constitutional Vitals: Temp Pulse Resp BP Pulse Ox 98.8 F 70 16 120/59 94 10/23/19 04:18 10/23/19 04:18 10/23/19 04:18 10/23/19 04:18 10/23/19 04:18 General appearance: Present: mild distress, well-nourished, other (Afebrile) Results - Labs CBC & Chem 7: 10/23/19 07:29 10/22/19 07:53 Labs: Laboratory Last Values WBC 13.1 K/mm3 (4.5-11.0) H 10/23/19 07:29 RBC 2.20 M/mm3 (3.65-5.03) L 10/23/19 07:29 Hgb 6.6 gm/dl (11.8-15.2) L 10/23/19 07:29 Hct 18.3 % (35.5-45.6) L* 10/23/19 07:29 MCV 83 fl (84-94) L 10/23/19 07:29 MCH 30 pg (28-32) 10/23/19 07:29 MCHC 36 % (32-34) H 10/23/19 07:29 RDW 25.8 % (13.2-15.2) H 10/23/19 07:29 Plt Count 348 K/mm3 (140-440) 10/23/19 07:29 Lymph % (Auto) 15.2 % (13.4-35.0) 10/20/19 03:38 [place] % (Auto) 11.5 % (0.0-7.3) H 10/20/19 03:38 Eos % (Auto) 4.1 % (0.0-4.3) 10/20/19 03:38 Baso % (Auto) Coater Operator Insulation Board 10/23/19 07:29 Lymph # 2.7 K/mm3 (1.2-5.4) 10/20/19 03:38 [place] # 2.0 K/mm3 (0.0-0.8) H 10/20/19 03:38 Eos # 0.7 K/mm3 (0.0-0.4) H 10/20/19 03:38 Baso # 0.1 K/mm3 (0.0-0.1) 10/20/19 03:38 Add Manual Diff Complete 10/22/19 10:38 Total Counted 100 10/22/19 10:38 Seg Neutrophils % 68.6 % (40.0-70.0) 10/20/19 03:38 Seg Neuts % (Manual) 90.0 % (40.0-70.0) H 10/22/19 10:38 Band Neutrophils % 0 % 10/22/19 10:38 Lymphocytes % (Manual) 6.0 % (13.4-35.0) L 10/22/19 10:38 Reactive Lymphs % (Man) 0 % 04/15/20 10:38 Monocytes % (Manual) 3.0 % (0.0-7.3) 10/22/19 10:38 Eosinophils % (Manual) 1.0 % (0.0-4.3) 10/22/19 10:38 Basophils % (Manual) 0 % (0.0-1.8) 10/22/19 10:38 Metamyelocytes % 0 % 10/22/19 10:38 Myelocytes % 0 % 10/22/19 10:38 Promyelocytes % 0 % 10/22/19 10:38 Blast Cells % 0 % 10/22/19 10:38 Nucleated RBC % Not Reportable 10/22/19 10:38 Seg Neutrophils # 12.1 K/mm3 (1.8-7.7) H 10/20/19 03:38 Seg Neutrophils # Man 13.9 K/mm3 (1.8-7.7) H 10/22/19 10:38 Band Neutrophils # 0.0 K/mm3 10/22/19 10:38 Lymphocytes # (Manual) 0.9 K/mm3 (1.2-5.4) L 10/22/19 10:38 Abs React Lymphs (Man) 0.0 K/mm3 10/22/19 10:38 Monocytes # (Manual) 0.5 K/mm3 (0.0-0.8) 10/22/19 10:38 Eosinophils # (Manual) 0.2 K/mm3 (0.0-0.4) 10/22/19 10:38 Basophils # (Manual) 0.0 K/mm3 (0.0-0.1) 10/22/19 10:38 Metamyelocytes # 0.0 K/mm3 10/22/19 10:38 Myelocytes # 0.0 K/mm3 10/22/19 10:38 Promyelocytes # 0.0 K/mm3 10/22/19 10:38 Blast Cells # 0.0 K/mm3 10/22/19 10:38 WBC Morphology Not Reportable 10/22/19 10:38 Hypersegmented Neuts Not Reportable 10/22/19 10:38 Hyposegmented Neuts Not Reportable 10/22/19 10:38 Hypogranular Neuts Not Reportable 10/22/19 10:38 Smudge Cells Not Reportable 10/22/19 10:38 Toxic Granulation Not Reportable 10/22/19 10:38 Toxic Vacuolation Not Reportable 10/22/19 10:38 Dohle Bodies Not Reportable 10/22/19 10:38 Pelger-Huet Anomaly Not Reportable 10/22/19 10:38 Arian Rods Not Reportable 10/22/19 10:38 Platelet Estimate Consistent w auto 10/22/19 10:38 Clumped Platelets Not Reportable 10/22/19 10:38 Plt Clumps, EDTA Not Reportable 10/22/19 10:38 Large Platelets Not Reportable 10/22/19 10:38 Giant Platelets Not Reportable 10/22/19 10:38 Platelet Satelliting Not Reportable 10/22/19 10:38 Plt Morphology Comment Not Reportable 10/22/19 10:38 RBC Morphology Not Reportable 10/22/19 10:38 Dimorphic RBCs Not Reportable 10/22/19 10:38 Polychromasia Not Reportable 10/22/19 10:38 Hypochromasia Not Reportable 10/22/19 10:38 Poikilocytosis Not Reportable 10/22/19 10:38 Anisocytosis 3+ 10/22/19 10:38 Microcytosis Not Reportable 10/22/19 10:38 Macrocytosis 1+ 10/22/19 10:38 Spherocytes Not Reportable 10/22/19 10:38 Pappenheimer Bodies Not Reportable 10/22/19 10:38 Sickle Cells Few 10/22/19 10:38 Target Cells 1+ 10/22/19 10:38 Tear Drop Cells Not Reportable 10/22/19 10:38 Ovalocytes Not Reportable 10/22/19 10:38 Helmet Cells Not Reportable 10/22/19 10:38 [place] Bodies Not Reportable 10/22/19 10:38 Ramer Rings Not Reportable 10/22/19 10:38 Clif Cells Not Reportable 10/22/19 10:38 Bite Cells Not Reportable 10/22/19 10:38 Crenated Cell Not Reportable 10/22/19 10:38 Elliptocytes Not Reportable 10/22/19 10:38 Acanthocytes (Spur) Not Reportable 10/22/19 10:38 Rouleaux Not Reportable 10/22/19 10:38 Hemoglobin C Crystals Not Reportable 10/22/19 10:38 Schistocytes Not Reportable 10/22/19 10:38 Malaria parasites Not Reportable 10/22/19 10:38 Percent Retic 6.15 % (0.78-2.58) H 10/19/19 05:14 Heraclio Bodies Not Reportable 10/22/19 10:38 Hem Pathologist Commnt No 10/22/19 10:38 PT 15.2 Sec. (12.2-14.9) H 10/16/19 10:33 INR 1.18 (0.87-1.13) H 10/16/19 10:33 APTT 28.1 Sec. (24.2-36.6) 10/16/19 10:33 Sodium 137 mmol/L (137-145) 10/22/19 07:53 Potassium 4.8 mmol/L (3.6-5.0) 10/22/19 07:53 Chloride 102.1 mmol/L (98-107) 10/22/19 07:53 Carbon Dioxide 20 mmol/L (22-30) L 10/22/19 07:53 Anion Gap 20 mmol/L 10/22/19 07:53 BUN 19 mg/dL (9-20) 10/22/19 07:53 Creatinine 0.8 mg/dL (0.8-1.5) 10/22/19 07:53 Estimated GFR > 60 ml/min 10/22/19 07:53 BUN/Creatinine Ratio 24 % 10/22/19 07:53 Glucose 98 mg/dL (75-100) 10/22/19 07:53 Calcium 9.3 mg/dL (8.4-10.2) 10/22/19 07:53 Iron 239 ug/dL (49-181) H 10/19/19 05:14 TIBC 308 mcg/dL (250-450) 10/19/19 05:14 Ferritin 89.3 ng/mL (13.0-400.0) 10/16/19 10:33 Total Bilirubin 5.30 mg/dL (0.1-1.2) H 10/16/19 10:33 AST 53 units/L (5-40) H 10/16/19 10:33 ALT 45 units/L (7-56) 10/16/19 10:33 Alkaline Phosphatase 111 units/L (35-129) 10/16/19 10:33 Lactate Dehydrogenase 607 units/L (91-180) H 10/16/19 10:33 C-Reactive Protein 0.80 mg/dL (0.00-1.30) 10/16/19 10:33 NT-Pro-B Natriuret Pep 70.60 pg/mL (0-450) 10/16/19 10:33 Total Protein 8.0 g/dL (6.3-8.2) 10/16/19 10:33 Albumin 4.4 g/dL (3.9-5) 10/16/19 10:33 Albumin/Globulin Ratio 1.2 % 10/16/19 10:33 Vitamin B12 463.8 pg/mL (211-911) 10/19/19 05:14 Folate > 20 ng/mL (7.3-26.0) 10/19/19 05:14 Procalcitonin 0.36 ng/mL (<0.15) 10/16/19 10:33 Blood Type O POSITIVE 10/19/19 12:14 Antibody Screen Positive 10/19/19 12:14 Antibody Identification Anti-C Anti-E 10/19/19 12:14 Antibody Identification Anti-C Anti-E 10/19/19 12:14 Crossmatch See Detail 10/19/19 12:14 Microbiology: Microbiology 10/21/19 Unknown Urine,Clean Catch Urine Culture - Preliminary NO GROWTH AFTER 48 HOURS 10/21/19 Unknown Peripheral/Venous Blood Culture - Preliminary NO GROWTH AFTER 24 HOURS 10/21/19 Unknown Peripheral/Venous Blood Culture - Preliminary NO GROWTH AFTER 24 HOURS Chun/IV: Voiding Method Urinal IV Catheter Type [Right Hand] INT / Saline Lock Active Medications - Current Medications Current Medications: Generic Name Dose Route Start Last Admin Trade Name Freq PRN Reason Stop Dose Admin Acetaminophen 650 mg 10/19/19 22:36 10/19/19 23:55 Tylenol PO 650 mg Q6H PRN Administration Pain, Mild (1-3) Acetaminophen/Hydrocodone Bitart 1 each 10/16/19 16:29 10/22/19 14:33 [place] 10/325 PO 1 each Q4H PRN Administration Pain, Moderate (4-6) Bisacodyl 10 mg 10/16/19 16:29 Dulcolax [place] QDAY PRN Constipation unrelieved by MOM Diphenhydramine HCl 25 mg 10/16/19 16:29 10/22/19 14:38 Benadryl PO 25 mg Q6H PRN Administration Itching Folic Acid 1 mg 10/17/19 10:00 10/22/19 14:35 Folvite PO 1 mg QDAY TYLER Administration Cefepime HCl 2 gm in 100 mls @ 200 mls/hr 10/21/19 22:00 10/23/19 07:08 Cefepime/Ns 2 Gm/100 Ml IV Infused Q8HR TYLER Infusion Protocol Sodium Chloride 1,000 mls @ 75 mls/hr 10/21/19 19:30 10/22/19 20:15 Nacl 0.9% 1000 Ml IV Infused DIRECT TYLER Infusion Vancomycin HCl 1,250 mg/ 275 mls @ 166.667 mls/hr 10/22/19 14:00 10/23/19 05:42 Sodium Chloride IV 166.667 mls/hr Q8HR TYLER Administration Sodium Chloride 500 mls @ 0 mls/hr 10/23/19 09:00 Nacl 0.9% 500 Ml IV 10/23/19 18:00 ONCE TYLER As Directed Magnesium Hydroxide 30 ml 10/16/19 16:29 Milk Of Magnesia PO Q4H PRN Constipation Multivitamins 1 each 10/17/19 10:00 10/22/19 14:34 Theragran Tab PO 1 each QDAY TYLER Administration Naloxone HCl 0.1 mg 10/16/19 16:29 Naloxone IV Q2MIN PRN Res Rate </= 8 or 02 SAT < 92% Ondansetron HCl 4 mg 10/16/19 16:29 Zofran IV Q8H PRN Nausea And Vomiting Senna 17.2 mg 10/16/19 22:00 10/22/19 21:45 Senokot PO 17.2 mg QHS TYLER Administration
[2019-10-23] MEDS ORDERED: SODIUM CHLORIDE 0.9% 500 ML 500 ML IV SCH (09:00)
[2019-10-23 09:11] LABS: Basophils % (Manual) 0 % (0.0-1.8); Total Cells Counted 100
[2019-10-23 09:12] LABS: Anisocytosis 2+; Ovalocytes 1+; Poikilocytosis 3+; Sickle Cells 1+; Target Cells 1+
[2019-10-23 09:13] LABS: Large Platelets Few; Platelet Estimate Consistent w Auto
[2019-10-23] MEDS: MULTIVITAMINS ,THERAPEUTIC TAB PO SCH (11:08)
[2019-10-23] MEDS: FOLIC ACID 1 MG TAB PO SCH (11:09)
[2019-10-23] MEDS: SODIUM CHLORIDE 0.9% 1000 ML 1,000 ML IV SCH (13:36)
--- NOTE | 2019-10-23 14:06 | Progress Note ---
Assessment and Plan Cultures: 10/21/2019 blood culture: No growth 10/17/2019 MRSA nasal culture: Negative A/P: 29-year-old male with sickle cell disease: #Bilateral basilar infiltrates concerning for pneumonia: 2 episodes of fever. #Acute respiratory failure: oxygen weaned off. #Sickle cell crisis #Leukocytosis: improving. Recs: OK for discharge on PO Ceftin 500 mg twice daily plus PO doxycycline 100 mg twice daily for 5 days d/W Dr. Gray. Cnadida Brooke MD, FACP [facility], [place], [facility] ([facility]) C: [phone] O: [phone] F: [phone] Subjective Date of service: 10/23/19 Interval history: No fever. Feels well. Weaned off oxygen. Objective - Exam Narrative Exam: Physical Exam: Constitutional: Alert, cooperative. No acute distress Head, Ears, Nose: Normocephalic, atraumatic. External ears, nose normal Eyes: Conjunctivae/corneas clear. No icterus. No ptosis. Neck: Supple, no meningeal signs Cardiovascular: S1, S2 normal. Respiratory: AE fair b/l. GI: Soft, non-tender; bowel sounds normal. No peritoneal signs Musculoskeletal: No pedal edema, no cyanosis. Skin: No rash or abscess Hem/Lymphatic: No palpable cervical or supraclavicular nodes. No lymphangitis Psych: Mood ok. Affect normal Neurological: Awake, alert, oriented. No gross abnormality - Constitutional Vitals: Vital Signs Temp Pulse Resp BP Pulse Ox 98.5 F 64 16 111/65 97 10/23/19 08:45 10/23/19 08:45 10/23/19 08:45 10/23/19 08:45 10/23/19 08:45 Temperature -Last 24 Hours Temperature 98.5 F Temperature 98.8 F Temperature 98.3 F Temperature 98.4 F Temperature 98.1 F - Labs CBC & Chem 7: 10/23/19 07:29 10/22/19 07:53 Labs: Abnormal lab results 10/19/19 10/23/19 10/23/19 Range/Units 12:14 07:29 09:11 WBC 13.1 H (4.5-11.0) K/mm3 RBC 2.20 L (3.65-5.03) M/mm3 Hgb 6.6 L (11.8-15.2) gm/dl Hct 18.3 L* (35.5-45.6) % MCV 83 L (84-94) fl MCHC 36 H (32-34) % RDW 25.8 H (13.2-15.2) % Monocytes % (Manual) 12.0 H (0.0-7.3) % Eosinophils % (Manual) 8.0 H (0.0-4.3) % Seg Neutrophils # Man 8.3 H (1.8-7.7) K/mm3 Monocytes # (Manual) 1.6 H (0.0-0.8) K/mm3 Eosinophils # (Manual) 1.0 H (0.0-0.4) K/mm3 Crossmatch See Detail See Detail
--- NOTE | 2019-10-23 15:41 | Discharge Summary ---
Providers - Providers Date of Admission: 10/16/19 11:42 Date of discharge: 10/23/19 Attending physician: FLAVIA BELCHER 10/16/19 16:29 Consult to Physician [CONS] Routine Comment: Consulting Provider: CALVIN ROJAS Physician Instructions: Reason For Exam: Sickle cell crisis 10/21/19 19:27 Consult to Physician [CONS] Routine Comment: Consulting Provider: YAMILKA PATTEN Physician Instructions: Reason For Exam: HCAP Primary care physician: KITMAN Hospitalization Reason for admission: Sickle cell crisis/anemia Condition: Stable Pertinent studies: CXR Procedures: 3 unit PRBC transfusion Hospital course: Stable at discharge 10/23/19; hemoglobin 6.6 today, sickle cell anemia Transfuse 1 unit of PRBC,Hb improved to 7.3 If hemoglobin improves may discharge the patient home this evening 10/22/19: Patient is afebrile last 24 hours Feels slightly better, leukocytosis decreased to 15 K On IV antibiotics, ID evaluated the patient, agree with the current management 10/21/19;HCAP : i/v antibiotics,ID evaluation 10/20/19: Patient spiked temperature 101.2 F, probably post transfusion fever However patient has leukocytosis WBC 17.6, started IV Rocephin Check room air O2 sats resting and ambulatory Patient's hemoglobin improved to 7.5 after 2 units of transfusion 10/19/19 patient's hemoglobin dropped to 6.9, transfuse 1 additional unit of PRBC Patient's reticulocyte count is still high, oxygen and IV fluids, monitor reticulocyte count Reticulocyte count improved from 9.19-6.15[normal 0.7- 2.5] Assessment and plan; --Acute respiratory distress; with brief hypoxemia Resolved with nasal cannula oxygen, continue supportive care --Symptomatic anemia; hemoglobin 6.7 Improved after blood transfusion to 7.2 Today hemoglobin dropped to 6.9, no external evidence of bleeding Transfuse additional 1 unit PRBC today --Sickle cell crisis; oxygen titrate O2 sats to more than 90% IV fluids, pain medications, hematology consult if needed Patient's reticulocyte count still high --Leukocytosis; probably stress-induced Closely monitor --Mild elevation of transaminases; Sickle cell related, closely monitor, abdominal ultrasound if no improvement --DVT prophylaxis; SCDs No pharmacologic anticoagulation in view of anemia Stable at discharge Disposition: [id number]/[place]-[address]/LAW ENFORCEMENT Time spent for discharge: 33 min Core Measure Documentation - Palliative Care Palliative Care/ Comfort Measures: Not Applicable - Core Measures Any of the following diagnoses?: none Exam - Constitutional Vitals: Temp Pulse Resp BP Pulse Ox 98.5 F 64 16 111/65 97 10/23/19 08:45 10/23/19 08:45 10/23/19 08:45 10/23/19 08:45 10/23/19 08:45 General appearance: Present: no acute distress, well-nourished - EENT Eyes: Present: PERRL, EOM intact - Neck Neck: Present: supple, normal ROM - Respiratory Respiratory effort: normal Respiratory: bilateral: diminished, rhonchi, negative: rales, wheezing - Cardiovascular Rhythm: regular Heart Sounds: Present: S1 & S2 - Extremities Extremities: no ischemia, No edema - Abdominal General gastrointestinal: Present: soft, non-tender, non-distended, normal bowel sounds - Integumentary Integumentary: Present: clear, warm - Musculoskeletal Musculoskeletal: strength equal bilaterally - Psychiatric Psychiatric: appropriate mood/affect, cooperative - Neurologic Neurologic: CNII-XII intact, moves all extremities Plan Activity: advance as tolerated Diet: regular Additional Instructions: See your private forensic sergeant in 2 weeks Follow up with: RADHA ONOFRE MD [Primary Care Provider] - 3-5 Days CALVIN ROJAS MD [Staff Physician] - 7 Days Prescriptions: cefUROXime [Ceftin] 2 tab PO Q12H #20 tablet Doxycycline Monohydrate 100 mg PO BID #10 capsule Ferrous Sulfate [Feosol 325 MG tab] 325 mg PO BID #60 tablet Folic Acid [Folvite] 1 mg PO QDAY #30 tablet
[2019-10-23] MEDS: ACETAMINOPHEN 325 MG TAB PO PRN (17:37)
[2019-10-23 20:24] VITALS: BP 133/74
[2019-10-23 20:29] LABS: Hematocrit 20.4 % (35.5-45.6); Hemoglobin 7.3 gm/dl (11.8-15.2)
== END 2019-10-23 20:30 | DRG 811 ==
LOC: ED 09:54 → 4A 11:42
PROVIDERS: ADMIT Internal Medicine; ATTEND Internal Medicine
PROC: 30233N1 Transfusion of Nonautologous Red Blood Cells into Peripheral Vein, Percutaneous Approach (ICD-10-PCS; principal; 2019-10-16)
DX: D57.00 Hb-SS disease with crisis, unspecified (principal); J18.9 Pneumonia, unspecified organism; D64.9 Anemia, unspecified; R09.02 Hypoxemia; D72.829 Elevated white blood cell count, unspecified; Z79.899 Other long term (current) drug therapy
CPT/HCPCS: 36415; 71045; 80048; 80053; 82607; 82728; 82747; 83550; 83615; 83880; 84145; 85007; 85014; 85018; 85025; 85045; 85610; 85660; 85730; 86140; 86850; 86870; 86900; 86901; 86922; 87040; 87086; 87116; 93005; 93010; G0378; J0692; J0696; J3370; J7030; J7040; J7050; P9016